=== PATIENT | male | born 1940 | race Caucasian/White ===

== ENCOUNTER 2022-09-16 13:41 | Outpatient (OUT) | payer MEDICARE, SELFPAY ==
[2022-09-16 14:48] LABS: Anion Gap 13.1; BUN Creatinine Ratio 22.2; Calcium 9.1 mg/dL (8.5-10.1); Carbon Dioxide 25.1 mmol/L (21.0-32.0); Chloride 104 mmol/L (98-107); Estimated GFR (African America >60 (>=60); Estimated GFR (Non-African Ame >60 (>=60); Glucose 123 mg/dL (74-106); Potassium 4.2 mmol/L (3.5-5.1); Sodium 138 mmol/L (136-145)
[2022-09-16 14:54] LABS: Basophils Percent Auto 0.3 % (0.2-2.0); Eosinophils Absolute Auto 0.1 10^3/uL (0.0-0.7); Hematocrit 46.3 % (42.0-54.0); Hemoglobin 15.3 g/dL (14.0-18.0); Immature Granulocytes Abs Auto 0.01 10^3/uL (0.00-0.03); Immature Granulocytes Pct Auto 0.2 % (0.0-0.5); Lymphocytes Absolute Auto 1.1 10^3/uL (1.2-3.8); Lymphocytes Percent Auto 16.2 % (20.5-60.0); Mean Corpuscular Hemoglobin 31.9 pg (25.9-34.0); Mean Corpuscular Volume 96.5 fL (80.0-94.0); Mean Platelet Volume 10.7 fL (9.5-13.5); Monocytes Absolute Auto 0.7 10^3/uL (0.3-0.8); Monocytes Percent Auto 11.1 % (1.7-12.0); Neutrophils Absolute Auto 4.6 10^3/uL (1.4-6.5); Neutrophils Percent Auto 70.2 % (43.0-75.0); Platelet Count 172 10^3/uL (150-450); Red Cell Distribution Width 13.2 % (11.0-15.0); White Blood Count 6.6 10^3/uL (4.0-11.0)
== END 2022-09-16 13:42 ==
PROVIDERS: PCP Family Medicine; Visit Provider Internal Medicine Cardiovascular Disease
DX: Z01.812 Encounter for preprocedural laboratory examination (principal); Z01.818 Encounter for other preprocedural examination
CPT/HCPCS: 36415; 80048; 85025

== ENCOUNTER 2023-03-08 09:55 | Outpatient (OUT) | payer MEDICARE, SELFPAY ==
[2023-03-08 10:12] LABS: Basophils Percent Auto 0.3 % (0.2-2.0); Eosinophils Absolute Auto 0.1 10^3/uL (0.0-0.7); Eosinophils Percent Auto 1.9 % (0.9-7.0); Hemoglobin 14.8 g/dL (14.0-18.0); Immature Granulocytes Abs Auto 0.01 10^3/uL (0.00-0.03); Immature Granulocytes Pct Auto 0.1 % (0.0-0.5); Lymphocytes Absolute Auto 1.2 10^3/uL (1.2-3.8); Lymphocytes Percent Auto 17.5 % (20.5-60.0); Mean Corpuscular HGB Conc 32.9 g/dL (29.9-35.2); Mean Corpuscular Hemoglobin 32.2 pg (25.9-34.0); Mean Platelet Volume 10.7 fL (9.5-13.5); Monocytes Absolute Auto 0.6 10^3/uL (0.3-0.8); Neutrophils Percent Auto 71.2 % (43.0-75.0); Platelet Count 160 10^3/uL (150-450); Red Blood Count 4.59 10^6/uL (4.70-6.10); Red Cell Distribution Width 12.6 % (11.0-15.0)
[2023-03-08 10:52] LABS: Anion Gap 12.2; BUN Creatinine Ratio 19.2; Calcium 8.9 mg/dL (8.5-10.1); Carbon Dioxide 28.3 mmol/L (21.0-32.0); Chloride 106 mmol/L (98-107); Estimated GFR (African America >60 (>=60); Estimated GFR (Non-African Ame 58 (>=60); Glucose 175 mg/dL (74-106); Potassium 4.5 mmol/L (3.5-5.1); Sodium 142 mmol/L (136-145)
== END 2023-03-08 09:56 | disposition home or self-care (01) ==
LOC: LAB 09:58
PROVIDERS: PCP Family Medicine; Visit Provider Internal Medicine Cardiovascular Disease
DX: I50.21 Acute systolic (congestive) heart failure (principal)
CPT/HCPCS: 36415; 80048; 85025

== ENCOUNTER 2023-03-22 09:34 | Outpatient (OUT) | payer MEDICARE, SELFPAY ==
--- NOTE | 2023-03-22 09:53 | XR_ITS ---
The [address] [address] Patient Name: LEWIS WAHL MRN: [id number] date: 1940 Sex: M Assigned Patient Location: [facility] Current Patient Location: [facility] Accession/Order Number: [id number] Exam Date: 03/22/2023 10:00 Report Date: 03/22/2023 11:35 At the request of: SOPHIE WALLACE Procedure: XR chest 2V EXAM: XR chest 2V HISTORY: Chronic Systolic Heart Failure I50.22 COMPARISON: None. TECHNIQUE: PA and lateral views of the chest. FINDINGS: The cardiomediastinal silhouette is normal. No focal consolidation is identified. There is no pneumothorax. No pleural effusion is noted. The osseous structures are intact. XR/XR chest 2V IMPRESSION: No acute cardiopulmonary process. Electronically authenticated by: RIOS CABRERA Date: 03/22/2023 11:35
== END 2023-03-22 09:35 | disposition home or self-care (01) ==
LOC: RAD 09:43
PROVIDERS: PCP Family Medicine; Visit Provider Internal Medicine Cardiovascular Disease
DX: I50.22 Chronic systolic (congestive) heart failure (principal)
CPT/HCPCS: 71046

== ENCOUNTER 2023-05-02 12:45 | Outpatient (OUT) | payer MEDICARE, SELFPAY ==
--- OUTSIDE RECORDS SUMMARY | 2023-05-02 12:51 | XMS_ITS | CCD ---
Author Name Unknown Address [address] [place] [address] Organization [facility] Care Team Providers Care Row Boss Hoeing Name Role Phone Denisse Diaz Attending Unavailable Florentino Panda MD Unavailable Unavailable Lydia Milner Unavailable Unavailable Flroentino Panda Unavailable Unavailable ELTAHAWYALE Attending Unavailable ELTAHAWYALE Admitting Unavailable [facility] [place] Referring Unavailable [facility] Primary Care Unavailable ELTAHAWY, DR AGUERO Admitting Unavailable ELTAHAWY, DR AGUERO Attending Unavailable REQUEST, NONE LISTED Primary Care Unavaila ble ELTAHAWY, DR AGUERO Admitting Unavailable ELTAHAWY, DR AGUERO Attending Unavailable ELTAHAWY, DR AGUERO Consulting Unavailable REQUEST, NONE LISTED Primary Care Unavaila ble ELTAHAWY, DR AGUERO Admitting Unavailable ELTAHAWY, DR AGUERO Attending Unavailable REQUEST, NONE LISTED Primary Care Unavaila ble PAY ., DR CHE Admitting Unavailable PAY ., DR CHE Attending Unavailable PAY ., DR CHE Consulting Unavailable REQUEST, NONE LISTED Primary Care Unavaila ble GRAEME BECKHAM Attending Unavailable BHAVANI, GRAEME Consulting Unavailable GRAEME BECKHAM Admitting Unavailable REQUEST, NONE LISTED Primary Care Unavaila ble CELY, DR TEVIN Fuchs Attending Unavailabl e CELY, DR TEVIN Fuchs Consulting Unavailabl e FROYECK, DR TEVIN Fuchs Admitting Unavailabl e REQUEST, NONE LISTED Primary Care Unavaila ble VILLA JASSO Attending Unavailable TYRESE BURDEN Referring Unavailable TYRESE BURDEN Referring Unavailable TYRESE BURDEN Admitting Unavailable TYRESE BURDEN Attending Unavailable ELTAHAWYALE Attending Unavailable YOEL MEDLEY Attending Unavailable TYRESE BURDEN Attending Unavailable Allergies Allergy Classification Reported Allergen(s) Allergy Type Date of Onset Reaction(s) Facility HMG-CoA Reductase Inhibitors (statins) (1 source) atorvastatin Drug Allergy Myalgia [facility] Work Phone: (2 sources) atorvastatin; Translations: [ATORVASTATIN] Drug Allergy 7 [facility] Repository (2 sources) Dextroamphetamine Drug Allergy 6 [facility] Medications Completed/Discontinued Medications Medication Drug Class(es) Dates Sig (Normalized) Sig (Original) aspirin 81 mg oral tablet (1 source) Platelet Aggregation Inhibitor, Nonsteroidal Anti-inflammatory Drug Aspirin Low Dose 81 MG TABS Refills: 0 Active carvedilol 25 mg oral tablet (1 source) alpha-Adrenergic Drew, beta-Adrenergic Drew Carvedilol 25 MG Oral Tablet Refills: 0 Active clopidogrel 75 mg oral tablet (1 source) P2Y12 Platelet Inhibitor Clopidogrel Bisulfate 75 MG Oral Tablet Refills: 0 Active gentamicin 1 mg/ml topical cream (1 source) Start: 09-27-2018 Gentamicin Sulfate 0.1 % External Cream APPLY SPARINGLY TO AFFECTED AREA(S) ONCE DAILY Quantity: 1 Refills: 1 Florentino Panda MD Start : 27-Sep-2018 Active 30 GM Tube 24 hr isosorbide mononitrate 60 mg extended release oral tablet (1 source) Nitrate Vasodilator take 1 tablet by mouth every twenty-four hours Isosorbide Mononitrate ER 60 MG Oral Tablet Extended Release 24 Hour Refills: 0 Active lisinopril 20 mg oral tablet (1 source) Angiotensin Converting Enzyme Inhibitor Lisinopril 20 MG Oral Tablet Refills: 0 Active metFORMIN hydrochloride 500 mg oral tablet (1 source) Biguanide metFORMIN HCl - 500 MG Oral Tablet Refills: 0 Active rosuvastatin calcium 40 mg oral tablet (1 source) HMG-CoA Reductase Inhibitor Rosuvastatin Calcium 40 MG Oral Tablet Refills: 0 Active Problems Active Problems Problem Classification Problem Date Documented Da te Episodic/Chronic Calculus of urinary tract (1 source) History of calculus of kidney; Translations: [Personal history of urinary calculi] Episodic Congestive heart failure; nonhypertensive (4 sources) Chronic systolic (congestive) heart failure; Translations: [Chronic combined systolic (congestive) and diastolic (congestive) heart failure] Onset: 06-13-2022 Chronic Coronary atherosclerosis and other heart disease (1 source) Presence of aortocoronary bypass graft; Translations: [PRESENCE AORTOCORONARY BYPASS GRAFT] Onset: 07-04-2022 Episodic Diabetes mellitus without complication (1 source) Type 2 diabetes mellitus without complications; Translations: [TYPE 2 DM WITHOUT COMPLICATIONS] Onset: 05-30-2022 Chronic Disorders of lipid metabolism (1 source) Hypercholesterolemia ; Translations: [Pure hypercholesterolemia ] Chronic Essential hypertension (1 source) Hypertensive disorder; Translations: [Unspecified essential hypertension] Chronic Open wounds of head; neck; and trunk (1 source) Open wound of nose; Translations: [Open wound of nose, unspecified site, without mention of complication] Episodic Other aftercare (1 source) Other termite treater (current) drug therapy; Translations: [OTH POT ROOM TAPPER CURRENT DRUG THERAPY] Onset: 07-04-2022 Episodic Other aftercare (1 source) jail (current) use of oral hypoglycemic drugs; Translations: [USP USE ORAL HYPOGLYCEMIC DX] Onset: 07-04-2022 Episodic Other aftercare (1 source) jail (current) use of antithrombotics/anti platelets; Translations: [USP ANTITHROMBOT/ANTIPLA TLETS] Onset: 07-04-2022 Episodic Other aftercare (1 source) termite treater (current) use of anticoagulants; Translations: [POT ROOM TAPPER CURRNT USE ANTICOAGULANTS] Onset: 07-04-2022 Episodic Other aftercare (1 source) termite treater (current) use of aspirin; Translations: [USP CURRENT USE OF ASPIRIN] Onset: 05-30-2022 Episodic Other upper respiratory disease (1 source) Lesion of nose; Translations: [Other disease of nasal cavity and sinuses] Episodic Other upper respiratory disease (4 sources) Epistaxis; Translations: [EPISTAXIS] Onset: 06-30-2022 Episodic Katerina-; endo-; and myocarditis; cardiomyopathy (except that caused by tuberculosis or sexually transmitted disease) (6 sources) Dilated cardiomyopathy; Translations: [DILATED CARDIOMYOPATHY] Onset: 09-23-2021 Chronic Rehabilitation care; fitting of prostheses; and adjustment of devices (4 sources) Encounter for fitting and adjustment of other specified devices; Translations: [ENC FITTING AND ADJUST OTH SPEC DEVICES] Onset: 07-05-2022 Chronic Screening and history of mental health and substance abuse codes (1 source) Personal history of nicotine dependence; Translations: [PERSONAL HISTORY OF NICOTINE DEPEND] Onset: 05-30-2022 Episodic Skin and subcutaneous tissue infections (4 sources) Cutaneous abscess of back [any part, except buttock]; Translations: [CUT ABSC BACK ANY PRT EXCPT BUTTOCK] Onset: 05-27-2022 Episodic Unclassified (2 sources) Wound Check; Translations: [Wound Check] Onset: 03-22-2023 Unclassified (2 sources) Longstanding persistent atrial fibrillation; Translations: [Longstanding persistent atrial fibrillation] Onset: 06-13-2022 Past or Other Problems Problem Classification Problem Date Documented Da te Episodic/Chronic NEGATED: Highlighted row has not occurred!Residual codes; unclassified (1 source) Disease Episodic Results Test Name Value Interpretation Reference Range Facility Orders Onlyon 04-27-2023 Orders Only [id number] Raz Wahl A 1940 M Date Provider Department Center 04/27/2023 KASSANDRA TOBIAS [facility] Family History Problem Relation Age of Onset Coronary artery disease Father Family Status - Relation Status Age at Father [facility] Office Visiton 03-22-2023 Follow-up visit [id number] Raz Wahl A 1940 M Date Provider Department Center 03/22/2023 YOEL BOBBY Family History Problem Relation Age of Onset Coronary artery disease Father Family Status - Relation Status Age at Father Level of Service:29379 CT POSTOP FOLLOW UP VISIT RELATED TO ORIGINAL PX Reason for Visit and Comments: Wound Check [025634] [facility] HPon 03-13-2023 [facility] Electrophysiology Consult Note Reason for visit: CMP HPI: Lewis Wahl is a 82 y.o. year old with past medical history of systolic heart failure persistent A-fib, hyperlipidemia, hypertension, CAD status post CABG, DM2 on metformin (no insulin required). Per documentation review it seems he has mixed nonischemic and ischemic cardiomyopathy has had new onset A-fib and then had stress test and an echo. He had positive stress test and echo showed severely reduced LV function; he had heart cath 05/20/2021 which showed severe triple-vessel disease with history of CABG from 1998.. The heart cath showed no suitable targets for revascularization, left internal mammary artery graft to the LAD was widely patent, saphenous vein grafts were known to be occluded with prior angiography. After this heart cath patient was then cardioverted and had TANYA, he converted to sinus rhythm and then 3 months later continued to have reduced ejection fraction. He has been on GDMT: Eliquis 5 mg twice daily, Coreg 25 mg twice daily, Plavix 75 mg daily, Jardiance 10 mg daily, Imdur 60 mg daily, lisinopril 40 mg daily, Crestor 40 mg daily, Aldactone 12.5 mg daily ECG today is A-fib, no previous EKG on last visit to compare. Most recent EKG at my record 05/22/21 was SR with 1st degree. MUGA: 09/01/22 EF 36%. PMHx: CAD s/p CABG 1998, HTN, HLD, atrial fibrillation. PMH: Past Medical History: Diagnosis Date Atrial fibrillation ([facility]) CHF (congestive heart failure) ([facility]) Coronary artery disease Diabetes mellitus ([facility]) Hyperlipidemia Hypertension PSH: Past Surgical History: Procedure Laterality Date CARDIAC CATHETERIZATION CARDIOVERSION CORONARY ARTERY BYPASS GRAFT SH: Social Determinants of Health Tobacco Use: Medium Risk (03/06/2023) Patient History Smoking Tobacco Use: Former Smokeless Tobacco Use: Never Passive Exposure: Not on file Alcohol Use: Not on file Financial Resource Strain: Not on file Food Insecurity: Not on file Transportation Needs: Not on file Physical Activity: Not on file Stress: Not on file Social Connections: Not on file Intimate Partner Violence: Not on file Depression: Not on file Housing Stability: Not on file Allergies: Allergies Allergen Reactions Atorvastatin Weight: @WEIGHT@ Visit Vitals BP (!) 154/97 Pulse 94 Resp 16 Wt 86.2 kg (190 lb) SpO2 97% BMI 29.76 kg/m??? Smoking Status Former BSA 2.02 m??? Meds: No current facility-administered medications on file prior to encounter. Current Outpatient Medications on File Prior to Encounter Medication Sig Dispense Refill apixaban (Eliquis) 5 mg tablet Take 5 mg by mouth every 12 (twelve) hours. carvedilol (Coreg) 25 mg tablet Take 25 mg by mouth every 12 (twelve) hours. cholecalciferol (Vitamin D-3) 25 MCG (1000 UT) capsule Take 25 mcg by mouth in the morning. clopidogrel (Plavix) 75 mg tablet Take 75 mg by mouth in the morning. empagliflozin (Jardiance) 10 mg Take 10 mg by mouth in the morning. isosorbide mononitrate ER (Imdur) 60 mg 24 hr tablet Take 60 mg by mouth in the morning. lisinopril 40 mg tablet Take 40 mg by mouth in the morning. metFORMIN (Glucophage) 1,000 mg tablet Take 1,000 mg by mouth every 12 (twelve) hours. rosuvastatin (Crestor) 40 mg tablet Take 40 mg by mouth in the morning. nitroglycerin (Nitrostat) 0.[address] 0.4 mg under the tongue every 5 (five) minutes if needed for chest pain. ROS: Cardio Basic Cardiovascular Symptoms: no lightheadedness, no leg edema, no syncope, no orthopnea, no PND, no claudication, Constitutional Constitutional: no fever, no night sweats, no significant weight gain, no significant weight loss, no exercise intolerance Eyes Eyes: no dry eyes, no irritation, no vision change ENMT Ears: no difficulty hearing, no ear pain Nose: no frequent nosebleeds, Mouth/Throat: no sore throat, no bleeding gums, no snoring, no dry mouth, no mouth ulcers, no oral abnormalities, no teeth problems Respiratory Respiratory: no cough, no wheezing, no coughing up blood, no sleep apnea Musculoskeletal Musculoskeletal: no muscle aches, no muscle weakness, joint pain+, no back pain, no swelling in the extremities Integumentary Skin no rash, no ulcer, no varicosities, no discoloration, no pruritus Neurologic Neurologic: no loss of consciousness, no weakness, no numbness, no seizures, no dizziness, no headaches Psychiatric Psych: no depression, feeling safe in relationship, no alcohol abuse, Hematologic/Lymphatic Hematologic/Lymphatic no swollen glands, no bruising Physical Exam: Constitutional General Appearance: well-nourished, well-developed, appears stated age Level of Distress: comfortable Psychiatric Mental Status: alert, normal affect Orientation: oriented to time, place, and person Insight: good judgement Eyes Lids and Conjunctivae: non-injected, no xanthelasma ENMT Ears: no le (more content not included)... Normal [facility] Elizabet 03-13-2023 AMY RN educated pt on d/ c instructions. RN encouraged pt to voice any questions or concerns. Pt verbalizes no questions or concerns at this time. Normal [facility] NURSNOTE CHG wipes and betadi ne nasal swabs completed. Normal [facility] Orders Onlyon 03-13-2023 Orders Only [id number] Raz Wahl A 1940 Date Provider Department Center 03/13/2023 SMILEY PAGE [facility] Family History Problem Relation Age of Onset Coronary artery disease Father Family Status - Relation Status Age at Father Normal [facility] Orders Onlyon 11-14-2022 Orders Only [id number] Raz Wahl A 1940 Date Provider Department Center 11/14/2022 [facility] Family History Problem Relation Age of Onset Coronary artery disease Father Family Status - Relation Status Age at Father Normal [facility] Documentationon 09-23-2022 Documentation [id number] Raz Wahl A 1940 Date Provider Department Center 09/23/2022 VILLA HUNT ENRIQUE [facility] Family History Problem Relation Age of Onset Coronary artery disease Father Family Status - Relation Status Age at Father Normal [facility] Office Visiton 09-13-2022 Follow-up visit [id number] Raz Wahl A 1940 Date Provider Department Center 09/13/2022 TYRESE CHRISTY ENRIQUE Saenz Family History Problem Relation Age of Onset Coronary artery disease Father Family Status - Relation Status Age at Father Level of Service:48143 CT OFFICE/OUTPATIENT NEW HIGH MDM 60-74 MINUTES Normal [facility] Office Visiton 08-25-2022 Follow-up visit [id number] Raz Wahl A 1940 Date Provider Department Center 08/25/2022 VILLA HUNT ENRIQUE [facility] Family History Problem Relation Age of Onset Coronary artery disease Father Family Status - Relation Status Age at Father Level of Service:31534 CT OFFICE/OUTPATIENT ESTABLISHED MOD MDM 30-39 MIN Reason for Visit and Comments: Follow-up [491201] - f/u muga scan Normal [facility] Orders Onlyon 08-25-2022 Orders Only [id number] WahlRaz jay A 1940 M Date Provider Department Center 08/25/2022 KAREN LARSON [facility] Family History Problem Relation Age of Onset Coronary artery disease Father Family Status - Relation Status Age at Father Normal [facility] CBC AUTO DIFFon 06-30-2022 BASO # 0.0 103/ul Normal 0.0-0.1 [facility] Comment on above: Performed By: #### C BC #### [facility] [address] [address] [address] Marilyn Wahl Basophils/100 WBC (Bld) 0.2 % Normal 0.2-2.0 [facility] Comment on above: Performed By: #### C BC #### [facility] [address] [place] [address] Dr. Marilyn Wahl EO # 0.1 103/ul Normal 0.0-0.7 [facility] Comment on above: Performed By: #### C BC #### [facility] [address] [address] [address] Marilyn Wahl Eosinophils/100 WBC (Bld) 2.0 % Normal 0.9-7.0 [facility] Comment on above: Performed By: #### C BC #### [facility] [address] [place] [address] Dr. Marilyn Wahl Erythrocyte distribution width (RBC) [Ratio] 13.3 % Normal 11.0-15.0 [facility] Comment on above: Performed By: #### C BC #### [facility] [address] [place] [address] Dr. Marilyn Wahl Hematocrit (Bld) [Volume fraction] 42.9 % Normal 42.0-54.0 [facility] Comment on above: Performed By: #### C BC #### [facility] [address] [place] [address] Dr. Marilyn Wahl Hemoglobin (Bld) [Mass/Vol] 14.6 g/dL Normal 14.0-18.0 [facility] Comment on above: Performed By: #### C BC #### [facility] [address] [place] [address] Dr. Marilyn Wahl IG # 0.01 10e3/ul Normal 0.00-0.03 [facility] Comment on above: Performed By: #### C BC #### [facility] [address] [place] [address] Dr. Marilyn Wahl IG % 0.2 % Normal 0.0-0.5 [facility] Comment on above: Performed By: #### C BC #### [facility] [address] [place] [address] Dr. Marilyn Wahl LYMPH # 1.0 103/ul Critically low 1.2-3.8 [facility] Comment on above: Performed By: #### C BC #### [facility] [address] [place] [address] Dr. Marilyn Wahl Lymphocytes/100 WBC (Bld) 15.2 % Critically low 20.5-60.0 [facility] Comment on above: Performed By: #### C BC #### [facility] [address] [place] [address] Dr. Marilyn Wahl MANUAL DIFF REQ NO Normal [facility] Comment on above: Performed By: #### C BC #### [facility] [address] [place] [address] Dr. Marilyn Wahl MCH (RBC) [Entitic mass] 32.1 pg Normal 25.9-34.0 [facility] Comment on above: Performed By: #### C BC #### [facility] [address] [place] [address] Dr. Marilyn Wahl MCHC (RBC) [Mass/Vol] 34.0 g/dL Normal 29.9-35.2 [facility] Comment on above: Performed By: #### C BC #### [facility] [address] [place] [address] Dr. Marilyn Wahl MCV (RBC) [Entitic vol] 94.3 fL Critically high 80.0-94.0 [facility] Comment on above: Performed By: #### C BC #### [facility] [address] [place] [address] Dr. Marilyn Wahl MONO # 0.6 103/ul Normal 0.3-0.8 [facility] Comment on above: Performed By: #### C BC #### [facility] [address] [address] [address] Marilyn Wahl Monocytes/100 WBC (Bld) 9.9 % Normal 1.7-12.0 [facility] Comment on above: Performed By: #### C BC #### [facility] [address] [place] [address] Dr. Marilyn Wahl NEUT # 4.7 103/ul Normal 1.4-6.5 [facility] Comment on above: Performed By: #### C BC #### [facility] [address] [place] [address] Dr. Marilyn Wahl Neutrophils/100 WBC (Bld) 72.5 % Normal 43.0-75.0 [facility] Comment on above: Performed By: #### C BC #### [facility] [address] [place] [address] Dr. Marilyn Wahl Platelet mean volume (Bld) [Entitic vol] 10.0 fL Normal 9.5-13.5 [facility] Comment on above: Performed By: #### C BC #### [facility] [address] [place] [address] Dr. Marilyn Wahl PLT 178 103/ul Normal 150-450 [facility] Comment on above: Performed By: #### C BC #### [facility] [address] [place] [address] Dr. Marilyn Wahl RBC 4.55 106/ul Critically low 4.70-6.10 [facility] Comment on above: Performed By: #### C BC #### [facility] [address] [place] [address] Dr. Marilyn Wahl WBC 6.4 103/ul Normal 4.0-11.0 [facility] Comment on above: Performed By: #### C BC #### [facility] [address] [place] [address] Dr. Marilyn Wahl PROF CHEM 8 (BAS METB)on Anion gap [Moles/Vol] 11.3 mmol/L Normal [facility] Comment on above: Performed By: #### B MP #### [facility] [address] [address] [address] Marilyn Wahl Calcium [Mass/Vol] 8.7 mg/dL Normal 8.5-10.1 [facility] Comment on above: Performed By: #### B MP #### [facility] [address] [address] [address] Marilyn Wahl Chloride [Moles/Vol] 106 mmol/L Normal 98-107 [facility] Comment on above: Performed By: #### B MP #### [facility] [address] [place] [address] Dr. Marilyn Wahl CO2 [Moles/Vol] 26.1 mmol/L Normal 21.0-32.0 [facility] Comment on above: Performed By: #### B MP #### [facility] [address] [place] [address] Dr. Marilyn Wahl Creatinine [Mass/Vol] 1.02 mg/dL Normal 0.70-1.30 [facility] Comment on above: Performed By: #### B MP #### [facility] [address] [place] [address] Dr. Marilyn Wahl EGFR-AF CENTRAL AFRICAN >60 Normal >=60 [facility] Comment on above: Performed By: #### B MP #### [facility] [address] [address] [address] Marilyn Wahl EGFR-NON AF CENTRAL AFRICAN >60 Normal >=60 [facility] Comment on above: Performed By: #### B MP #### [facility] [address] [place] [address] Dr. Marilyn Wahl Glucose [Mass/Vol] 156 mg/dL Critically high 74-106 [facility] Comment on above: Performed By: #### B MP #### [facility] [address] [address] [address] Marilyn Wahl Potassium [Moles/Vol] 4.4 mmol/L Normal 3.5-5.1 [facility] Comment on above: Performed By: #### B MP #### [facility] [address] [address] [address] Marilyn Wahl Sodium [Moles/Vol] 139 mmol/L Normal 136-145 [facility] Comment on above: Performed By: #### B MP #### [facility] [address] [address] [address] Marilyn Wahl Urea nitrogen [Mass/Vol] 21.0 mg/dL Critically high 7.0-18.0 [facility] Comment on above: Performed By: #### B MP #### [facility] [address] [place] [address] Dr. Marilyn Wahl Urea nitrogen/Creatinine [Mass ratio] 20.6 mg/mg Normal [facility] Comment on above: Performed By: #### B MP #### [facility] [address] [place] [address] Dr. Marilyn Wahl Office Visiton 06-13-2022 Follow-up visit [id number] Raz Wahl 1940 M Date Provider Department Center 06/13/2022 [place] SANTOS [facility] Family History Problem Relation Age of Onset Coronary artery disease Father Family Status - Relation Status Age at Father Level of Service:98598 CT OFFICE/OUTPATIENT ESTABLISHED MOD MDM 30-39 MIN Reason for Visit and Comments: Coronary Artery Disease [187] Congestive Heart Failure [127] Hyperlipidemia [182] Atrial Fibrillation [80] Hypertension [254047] Normal [facility] CULTURE ABSCESSon 05-27-2022 CULTURE ABSCESS Culture Observations : ANAEROBE PRESENT. Isolate 1 Finegoldia magna Moderate growth of Normal [facility] Comment on above: Performed By: #### A BCESCX #### [facility] [address] [place] [address] Dr. Marilyn Wahl ECHOCARDIO M/2D COMPLETEon 0 09-23-2021 ECHOCARDIO M/2D COMPLETE Patient: LEWIS WAHL. Exam Date: 09/23/2021 : 1940 Gender:M Ordering : DR ALE SANTOS M.D. Admission #: [id number] Family : JOSEP MILNER . Order #: [id number] CLICK HERE TO VIEW EXAM ECHOCARDIOGRAM REPORT PROCEDURE: CARDIO PULMONARY ECHOCARDIO M/2D COMP INDICATIONS: Heart failure with reduced EF due to cardiomyopathy, atrial fibrillation, CABG, PTCA COMPARISON: None. DESCRIPTION: COMPLETE ECHOCARDIOGRAM Real-time transthoracic echocardiography with 2D, M-mode, spectral and color flow Doppler performed. QUALITY: Technical quality was good. LEFT VENTRICLE: Mild dilatation. Mild eccentric left ventricular hypertrophy. Global hypokinesis. Moderately to severely reduced left ventricular systolic function. LV EF: Moderately to severely reduced left ventricular ejection fraction, (25-30%). DIASTOLIC: Not adequately assessed due to heart rhythm. ATRIAL SEPTUM: LEFT ATRIUM: Moderate dilatation. RIGHT ATRIUM: Mild dilatation. RIGHT VENTRICLE: Normal chamber size. Decreased right ventricular systolic function. TRICUSPID VALVE: Normal mobility and thickness. No stenosis with trivial regurgitation. MITRAL VALVE: Mildly thickened with normal mobility. No evidence of mitral valve stenosis. Mild mitral regurgitation. AORTIC VALVE: Normal trileaflet appearance. Mildly calcified aortic valve. Normal leaflet mobility. No evidence of aortic valve stenosis. No aortic regurgitation. AORTIC ROOT: Normal diameter and appearance. Ascending aorta is normal in size. PULMONIC VALVE: Normal thickness and mobility. No stenosis. Mild regurgitation. PERICARDIUM: No evidence of pericardial effusion. IVC: Collapses with inspirations. PLEURA: CONCLUSION: 1. The left ventricle is mildly dilated with mild eccentric hypertrophy. There is global hypokinesis. Moderately severely reduced left ventricular systolic function. LVEF is 25 to 30%. 2. Normal right ventricular systolic function. 3. No significant valvular dysfunction. 4. Unable to assess right-sided pressures due to lack of measurable tricuspid regurgitation. Adult Echocardiography Procedure Report Left Ventricle LVEDD (3.7 - 5.6 cm): 5.96 cm LVESD (2.2 - 4.0 cm): 5.30 cm LVIVS thickness (0.6 - 1.2 cm): 1.30 cm LVPW thickness (0.5 - 1.0 cm): 1.15 cm LVOT Area (cm2): 5.31 cm2 LVOT Diameter 2.60 cm Left Ventricular Ejection Fraction: 25-30 % Left Atrium LA Volume Index (2D A2C): 47.10 ml/m2 Left Atrium Systolic Dimension: 5.00 cm Left Atrium Systolic Area(A2C): 27.10 cm2 Left Atrium Systolic Volume(A2C): 82359 mm3 Mitral Valve Mitral Valve E-Wave Peak Velocity: 92.30 cm/s Mitral Valve E-Wave Peak Velocity: 106.00 cm/s Right Ventricle Aorta AO Root Diam: 3.70 cm Aortic Valve AoV Area (Peak Lee): 2.76 cm2 Peak Velocity(Antegrade Flow): 149.00 cm/s Peak Gradient(Antegrade Flow): 9 mm[Hg] Tricuspid Valve Pulmonic Valve Peak Velocity: 97.80 cm/s Peak Gradient: 4 mm[Hg] Right Atrium Dictated by: Nickolas Rizzo M.D. on 2021 at 19:10 Approved by: Nickolas Rizzo M.D. on 2021 at 19:13 Normal [facility] Cardiovascular Lab Reporton 05-20-2021 Cardiovascular Lab Report [facility] Patient Name: [facility] MR #: [id number] Physician: Alistair Flaherty MD Medicine Service Date: 05/20/2021 Division of Birthdate: 1940 Cardiology Room #: [facility] Cardiovascular Services [place] [address] Cardiovascular Laboratory Report PROCEDURE PERFORMED: Transesophageal echocardiogram. INDICATION: Atrial fibrillation with RVR. FELLOW DOCTOR: Nikki Gagnon MD. PROCEDURE IN DETAIL: An informed consent was obtained from the patient after explaining indication, risks, and benefits, and alternatives. The patient understood and signed and agreed the consent form. The patient was brought to the minilab operator and TANYA, transesophageal echocardiogram, was performed under conscious sedation. The patient obtained a total of 3 mg of Versed and 75 mcg of fentanyl during the procedure. The transesophageal echocardiogram did not show any thrombus in the left atrial appendage. Full TANYA reported elsewhere. After the transesophageal echocardiogram, synchronized biphasic cardioversion was done with 200 joules of energy. The patient successfully converted to sinus rhythm as evidenced by EKG done postprocedure. No complications throughout the procedure. Electronically Signed by: Alistair Del Cid MD 06/10/2021 07:03 P Alistair Del Cid MD I was present for the entire procedure. Date Dict: 05/20/2021/01:26 P/Nikki Gagnon MD Date Trans: 05/20/2021 01:45 P/mmo [id number] Normal [facility] Cardiovascular Lab Report [facility] Patient Name: Pankaj [facility] [place] MR #: [id number] Department of Physician: Scott Guevara M.D. Division of Service Date: 05/20/2021 Cardiology Birthdate: 1940 Adult Cardiovascular Room #: [address] [place] [address] Cardiovascular Laboratory Report FINAL IMPRESSIONS: 1. Severe 3-vessel coronary artery disease including the left main coronary artery; no suitable targets for percutaneous revascularization 2. Left internal mammary artery graft to the left anterior descending is widely patent. 3. Saphenous vein grafts are known to be occluded by prior angiography. 4. Severe systemic hypertension. 5. Moderate to severely reduced global left ventricular systolic function by noninvasive imaging. RECOMMENDATIONS: 1. Aggressive cardiovascular risk factor modification. 2. Will proceed with transesophageal echocardiography +/- elective electrical cardioversion in an attempt to restore sinus rhythm given new onset heart failure with reduced ejection fraction (HFrEF). 3. Optimization of medical management; aspirin, high-intensity statin therapy, beta-drew, and either an angiotensin-converting enzyme inhibitor/receptor drew versus Entresto is indicated. 4. The patient is to resume Eliquis. 5. Follow up with his family physician as scheduled. 6. Follow up with [facility] Cardiology as scheduled. PROCEDURES: Bilateral selective coronary angiography and angiography of the left internal mammary artery graft via left radial approach. METHODS: After risks, benefits, and alternatives were explained, written informed consent was obtained. The patient was prepped and draped in usual sterile fashion over the left wrist. Using 1% lidocaine solution, local infiltration anesthesia was achieved. Using a modified Seldinger technique and a micropuncture kit, access of the left radial artery was obtained. A 6-Finnish glide sheath was inserted without difficulty. Bilateral selective coronary angiography was performed using JR4 and JL4 catheters. An IM catheter was used to cannulate and image the left internal mammary artery graft. The left subclavian was imaged by injection via the JR catheter. After reviewing the images and data, it was elected to conclude the procedure. All catheters were removed. The radial sheath was removed with application of a quick clot radial pad to achieve hemostasis. Overall, the patient tolerated the procedure well. There were no overt complications. He was to be transferred to the holding area in stable condition. FINDINGS: Hemodynamics AO 154/111. Left ventriculography: This was not performed. Ejection fraction is 25% to 30% by noninvasive imaging. CORONARY ARTERIES: Left main coronary artery: This arises from the left coronary cusp. It trifurcates into the left anterior descending, ramus intermedius, and left circumflex coronary artery. It shows a 50% distal stenosis and significant ectasia. Left anterior descending coronary artery. This shows ectasia in the proximal portion with an ostial 70% stenosis and a mid vessel 60% stenosis. It gives rise to prominent septal perforators supplying [id number] collaterals. Distal filling is seen via a patent left internal mammary artery graft to the left anterior descending. The diagonal branch showed diffuse disease. Ramus intermedius: This is a small to moderate size vessel with a 70% ostial stenosis. Left circumflex coronary artery: This shows ectasia and significant tortuosity in the proximal portion followed by a 60% stenosis. There is evidence of [id number]-[id number] collaterals. Right coronary artery: This is a dominant vessel giving rise to the posterior descending and posterolateral branches visualized via contralateral collaterals. It is stump occluded just past the ostium. There is heavy calcification throughout the vessel. GRAFT ANGIOGRAPHY: Left internal mammary artery graft to the left anterior descending: This is widely patent. Saphenous vein graft: These are known to be occluded. Left subclavian artery: This shows tortuosity without significant stenosis. INDICATIONS: New onset heart failure with reduced ejection fraction (HFrEF). Electronically Signed by: Ale Santos M.D. 05/26/2021 08:56 A Ale Santos M.D. Date Dict: 05/20/2021/11:19 Morgan/Ale Santos M.D. Date Trans: 05/20/2021 11:54 A/misael [id number] cc: KENYA Schmido Cln [address] [place] [address] Normal [facility] APTTon 09-27-2018 aPTT Coag time (Bld) 36 s Normal 28 - 38 [facility] Comment on above: Result Comment: THE APTT IS NO LONGER USED FOR MONITORING UNFRACTIONATED HEPARIN THERAPY. FOR MONITORING HEPARIN THERAPY, USE THE HEPARIN ASSAY. Performed By: #### A PTT #### [address] [address] CBC AND DIFFERENTIALon 09-27 % AUTOMATED IMMATURE GRAN 0.1 % Normal 0.0 - 0.9 [facility] Comment on above: Result Comment: Perc ent differential counts (%) should be interpreted in the context of the absolute cell counts (cells/L). Performed By: #### C BCDF #### [address] [address] % NEUTROPHIL 67.7 % Normal 40.0 - 80.0 [facility] Comment on above: Performed By: #### C BCDF #### [address] [address] Basophils/100 WBC (Bld) 0.1 % Normal 0.0 - 2.0 [facility] Comment on above: Performed By: #### C BCDF #### [address] [address] Basophils/100 WBC (Bld) 0.01 x10E9/L Normal 0.00 - 0.10 [facility] Comment on above: Performed By: #### C BCDF #### [address] [address] Eosinophils #/vol (Bld) 0.25 10*3/uL Normal 0.00 - 0.40 [facility] Comment on above: Performed By: #### C BCDF #### [address] [address] Eosinophils/100 WBC (Bld) 3.4 % Normal 0.0 - 6.0 [facility] Comment on above: Performed By: #### C BCDF #### [address] [address] Erythrocyte distribution width Ratio (RBC) 12.7 % Normal 11.5 - 14.5 [facility] Comment on above: Performed By: #### C BCDF #### [address] [address] Hematocrit Volume Fraction (Bld) 43.2 % Normal 41.0 - 52.0 [facility] Comment on above: Performed By: #### C BCDF #### [address] [address] Hemoglobin mass conc (Bld) 14.3 g/dL Normal 13.5 - 17.5 [facility] Comment on above: Performed By: #### C BCDF #### [address] [address] Lymphocytes #/vol (Bld) 1.29 10*3/uL Normal 0.80 - 3.00 [facility] Comment on above: Performed By: #### C BCDF #### [address] [address] Lymphocytes/100 WBC (Bld) 17.5 % Normal 13.0 - 44.0 [facility] Comment on above: Performed By: #### C BCDF #### [address] [address] MCHC mass conc (RBC) 33.1 g/dL Normal 32.0 - 36.0 [facility] Comment on above: Performed By: #### C BCDF #### [address] [address] MCV Entitic volume (RBC) 93 fL Normal 80 - 100 [facility] Comment on above: Performed By: #### C BCDF #### [address] [address] Monocytes #/vol (Bld) 0.83 10*3/uL High 0.05 - 0.80 [facility] Comment on above: Performed By: #### C BCDF #### [address] [address] Monocytes/100 WBC (Bld) 11.2 % Normal 2.0 - 10.0 [facility] Comment on above: Performed By: #### C BCDF #### [address] [address] Neutrophils #/vol (Bld) 5.00 10*3/uL Normal 1.60 - 5.50 [facility] Comment on above: Performed By: #### C BCDF #### [address] [address] Platelets #/vol (Bld) 193 10*3/uL Normal 150 - 450 [facility] Comment on above: Performed By: #### C BCDF #### [address] [address] RBC #/vol (Bld) 4.64 x10E12/L Normal 4.50 - 5.90 [facility] Comment on above: Performed By: #### C BCDF #### [address] [address] WBC #/vol (Bld) 7.4 10*3/uL Normal 4.4 - 11.3 [facility] [place] Comment on above: Performed By: #### C BCDF #### [address] [address] COMPREHENSIVE PANELon 2018 Albumin mass conc 3.8 g/dL Normal 3.4 - 5.0 [facility] Comment on above: Performed By: #### C MP #### [address] [address] ALP enzyme act/vol 97 U/L Normal 33 - 136 [facility] Comment on above: Performed By: #### C MP #### [address] [address] ALT enzyme act/vol 19 U/L Normal 10 - 52 [facility] Comment on above: Result Comment: Princess ents treated with Sulfasalazine may generate falsely decreased results for ALT. Performed By: #### C MP #### [address] [address] Anion gap molar conc 10 mmol/L Normal 10 - 20 [facility] Comment on above: Performed By: #### C MP #### [address] [address] AST enzyme act/vol 17 U/L Normal 9 - 39 [facility] Comment on above: Performed By: #### C MP #### [address] [address] Bilirubin mass conc 0.7 mg/dL Normal 0.0 - 1.2 [facility] Comment on above: Performed By: #### C MP #### [address] [address] Calcium mass conc 9.1 mg/dL Normal 8.6 - 10.3 [facility] Comment on above: Performed By: #### C MP #### [address] [address] Chloride molar conc 106 mmol/L Normal 98 - 107 [facility] Comment on above: Performed By: #### C MP #### [address] [address] Creatinine mass conc 0.96 mg/dL Normal 0.50 - 1.30 [facility] Comment on above: Performed By: #### C MP #### [address] [address] GFR- AM. >60 Normal >60 [facility] Comment on above: Result Comment: CALC ULATIONS OF ESTIMATED GFR ARE PERFORMED USING THE MDRD STUDY EQUATION FOR THE IDMS-TRACEABLE CREATININE METHODS. CLIN CHEM 2007;53:766-72 Performed By: #### C MP #### [address] [address] GFR-NON AM. >60 Normal >60 [facility] Comment on above: Performed By: #### C MP #### [address] [address] Glucose mass conc 171 mg/dL High 74 - 99 [facility] Comment on above: Performed By: #### C MP #### [address] [address] HCO3 molar conc (Bld) 28 mmol/L Normal 21 - 32 [facility] Comment on above: Performed By: #### C MP #### [address] [address] Potassium molar conc 3.8 mmol/L Normal 3.5 - 5.3 [facility] Comment on above: Performed By: #### C MP #### [address] [address] Protein mass conc 6.4 g/dL Normal 6.4 - 8.2 [facility] Comment on above: Performed By: #### C MP #### [address] [address] Sodium molar conc 140 mmol/L Normal 136 - 145 [facility] Comment on above: Performed By: #### C MP #### [address] [address] Urea nitrogen mass conc 13 mg/dL Normal 6 - 23 [facility] Comment on above: Performed By: #### C MP #### [address] [address] PT/INRon 09-27-2018 INR Coag RelTime (PPP) 1.0 {INR} Normal 0.9 - 1.1 [facility] Comment on above: Performed By: #### P TINR #### [address] [address] Prothrombin time (PT) Coag time (PPP) 11.8 s Normal 9.7 - 12.7 [facility] Comment on above: Performed By: #### P TINR #### [address] [address] Urine Cultureon 05-08-2018 Bacteria identified Cx Nom (U) [facility] ORGANISM: Escherichia coli (O:ESCCOL) Hurst Count >100,000 Aerobic KAMALJIT Charge (Neg) --- SUSCEPTIBILITY -- ORGANISM: O:ESCCOL ANTIBIOTIC INTERPRETATION KAMALJIT Amikacin S <16 Amoxacillin/K Clavulanate S <8/4 Ampicillin S <8 Ampicillin/Sulbactam S <8/4 Aztreonam S <8 Cefazolin S <8 Cefepime S <8 Cefotetan S <16 Ceftazidime S <1 Ceftriaxone S <8 Cefuroxime S <4 Ciprofloxacin S <1 Ertapenem S <2 Gentamicin S <4 Levofloxacin S <2 Meropenem S <4 Nitrofurantoin S <32 Piperacillin/Tazobacta m S <16 Tetracycline S <4 Tobramycin S <4 Trimethoprim/Sulfameth oxazole S <2/38 S = SUSCEPTIBLE I = INTERMEDIATE R = RESISTANT BLANK = DATA NOT AVAILABLE, OR DRUG NOT ADVISABLE OR TESTED R* = RESISTANCE DUE TO EXTENDED SPECTRUM BETA-LACTAMASES ESBL = EXTENDED SPECTRUM BETA-LACTAMASE TFG = THYMIDINE-DEPENDENT STRAIN AGUSTIN = BETA-LACTAMASE POSITIVE IB = INDUCIBLE BETA-LACTAMASE. APPEARS IN PLACE OF 'S' WITH SPECIES KNOWN TO POSSESS INDUCIBLE BETA-LACTAMASES. POTENTIALLY THEY MAY BECOME RESISTANT TO ALL B-LACTAM DRUGS. PERFORMED BY: [place] [address] PATHOLOGIST ASSOCIATE PROFESSOR OF RADIOLOGY CHRIST CANDELARIA M.D. Normal [facility] Comment on above: Performed By: #### C UU #### [address] Encounters Encounter Date Encounter Type Care Provider Facility Start: 03-22-2023 End: [facility] 03-13-2023 ambulatory [facility] Start: 03-13-2023 End: 03-13-2023 ambulatory TYRESE [facility] Start: 09-13-2022 End: 09-13-2022 ambulatory [facility] Start: 08-25-2022 End: 08-25-2022 ambulatory VILLA URENAMIReji [facility] Start: 07-05-2022 End: 07-05-[address] TEVIN TA Facility:[facility] Start: 06-30-2022 End: 06-30-2022 ambulatory GRAEME EBCKHAM Facility:[facility] Start: 06-13-2022 End: 06-13-2022 [facility] Start: 05-27-2022 End: 05-27-[address] CHINEDU AGUILAR . Facility:[facility] Start: 02-03-[address] ALE Hirsch ty:[facility] Start: 10-12-[address] ALE Hirsch ty:[facility] Start: 09-23-2021 End: [address] ALE SANTOS Facility:[facility] Start: 05-20-2021 End: 05-21-2021 ambulatory ALE SANTOS Facility:[facility] Start: 05-08-2018 End: 05-08-2018 Patient encounter procedure Denisse Diaz Facility:[facility] Patient encounter status Florentino Panda MD [facility] Work Phone: Procedures Date Procedure Procedure Detail Performing Clinician Start: 09-27-2018 Follow-up visit Bypass graft Florentino Panda MD Cataract surgery Florentino oliveira MD Mohs surgery Florentino Panda MD Tooth extraction Florentino oliveira MD Payers Date Payer Category Payer Medicare [id number] 2009 Unknown [id number] 1959 Self-pay 1959 Unknown [id number] 1940 Unknown [id number] [id number] 1940 Unknown [id number] 2.16.84 [id number] 1940 Unknown [id number] 2.16.84 [id number] 1940 Unknown [id number] 2.16.84 [id number] 1940 Unknown [id number] 2.16.84 [id number] 1940 Unknown [id number] 2.16.84 [id number] 1940 Unknown [id number] 2.16.84 [id number] Unknown [id number] [id number] Social History Date Type Detail Facility NEGATED: Highlighted row - - [facility] Work Phone: Functional Status Date Assessment Result Facility NEGATED: Highlighted row Functional performance Functional status health issues are not documented Disease [facility] Work Phone: Mental Status Date Assessment Result Facility NEGATED: Highlighted row Cognitive function [Interpretation] Cognitive status health issues are not documented Disease [facility] Work Phone: Clinical Notes 06-13-2022 to 03-22-2023 Note Date & Type Note Facility 03-22-2023 Note Cardiovascular Medic [facility] SUBJECTIVE Chief Complaint Patient presents with Wound Check Lewis Wahl is a 82 y.o. male here for follow-up after his recent dual chamber ICD placement. HPI He has been feeling well since his procedure. He has had trouble sleeping the past couple of nights. Denies c/o fever/chills, CP, dyspnea, orthopnea, PND, LE edema, dizziness/LH, palpitations, syncope. He was started on amiodarone with plans for a cardioversion in 4 weeks. Patient Active Problem List Diagnosis Acute systolic heart failure (CMS/HCC) Coronary atherosclerosis Hyperlipidemia Hypertensive disorder Persistent atrial fibrillation (CMS/HCC) Chronic systolic heart failure (CMS/HCC) Longstanding persistent atrial fibrillation (CMS/HCC) Past Medical History: Diagnosis Date Atrial fibrillation (CMS/HCC) CHF (congestive heart failure) ([facility]) Coronary artery disease Diabetes mellitus ([facility]) Hyperlipidemia Hypertension Family History Problem Relation Name Age of Onset Coronary artery disease Father Social History Tobacco Use Smoking status: Former Types: Cigarettes Smokeless tobacco: Never Substance Use Topics Alcohol use: Yes Comment: moderate Allergies Allergen Reactions Atorvastatin ROS OBJECTIVE Visit Vitals Smoking Status Former Medications: Current Outpatient Medications: amiodarone (Pacerone) 200 mg tablet, Take 2 tablets (400 mg) by mouth in the morning and at bedtime for 14 days, THEN 1 tablet (200 mg) in the morning., Disp: 116 tablet, Rfl: 0 apixaban (Eliquis) 5 mg tablet, Take 5 mg by mouth every 12 (twelve) hours., Disp: , Rfl: carvedilol (Coreg) 25 mg tablet, Take 25 mg by mouth every 12 (twelve) hours., Disp: , Rfl: cholecalciferol (Vitamin D-3) 25 MCG (1000 UT) capsule, Take 25 mcg by mouth in the morning., Disp: , Rfl: clopidogrel (Plavix) 75 mg tablet, Take 75 mg by mouth in the morning., Disp: , Rfl: doxycycline (Vibramycin) 100 mg capsule, Take 1 capsule (100 mg) by mouth in the morning and at bedtime for 14 days. Take with at least 8 ounces (large glass) of water, do not lie down for 30 minutes after, Disp: 28 capsule, Rfl: 0 empagliflozin (Jardiance) 10 mg, Take 10 mg by mouth in the morning., Disp: , Rfl: isosorbide mononitrate ER (Imdur) 60 mg 24 hr tablet, Take 60 mg by mouth in the morning., Disp: , Rfl: lisinopril 40 mg tablet, Take 40 mg by mouth in the morning., Disp: , Rfl: metFORMIN (Glucophage) 1,000 mg tablet, Take 1,000 mg by mouth every 12 (twelve) hours., Disp: , Rfl: nitroglycerin (Nitrostat) 0.4 mg SL tablet, Place 0.4 mg under the tongue every 5 (five) minutes if needed for chest pain., Disp: , Rfl: rosuvastatin (Crestor) 40 mg tablet, Take 40 mg by mouth in the morning., Disp: , Rfl: spironolactone (Aldactone) 25 mg tablet, Take 0.5 tablets (12.5 mg) by mouth in the morning., Disp: 45 tablet, Rfl: 3 Physical Exam Constitutional: Appearance: Normal appearance. He is normal weight. HENT: Head: Normocephalic and atraumatic. Right Ear: External ear normal. Left Ear: External ear normal. Eyes: Extraocular Movements: Extraocular movements intact. Pupils: Pupils are equal, round, and reactive to light. Neck: Vascular: No carotid bruit. Cardiovascular: Rate and Rhythm: Normal rate and regular rhythm. Pulses: Normal pulses. Heart sounds: Normal heart sounds. Comments: Left upper chest dual chamber ICD incision healing welll, no erythema, no calor, no drainage, no hematoma. Small to moderate amount of ecchymosis that is resolving. Pulmonary: Effort: Pulmonary effort is normal. Breath sounds: Normal breath sounds. Abdominal: General: Bowel sounds are normal. Palpations: Abdomen is soft. Musculoskeletal: General: Normal range of motion. Cervical back: Neck supple. Right lower leg: No edema. Left lower leg: No edema. Skin: General: Skin is warm and dry. Neurological: General: No focal deficit present. Mental Status: He is alert and oriented to person, place, and time. Psychiatric: Mood and Affect: Mood normal. Behavior: Behavior normal. Thought Content: Thought content normal. Judgment: Judgment normal. Labs: Admission on 03/13/2023, Discharged on 03/13/2023 Component Date Value Ref Range Status WBC 09/16/2022 6.6 Final RBC (0/HPF) 09/16/2022 4.8 Final Hemoglobin 09/16/2022 15.3 Final Hematocrit (client supplied) 09/16/2022 46.3 Final Platelets 09/16/2022 172 Final Sodium 09/16/2022 138 Final Potassium 09/16/2022 4.2 Final Chloride 09/16/2022 104 Final Glucose 09/16/2022 123 mg/dL Final BUN, Bld 09/16/2022 22 Final Creatinine 09/16/2022 0.99 Final Calcium 09/16/2022 9.1 Final WBC 03/08/2023 7 Final Hemoglobin, Serum 03/08/2023 14.8 Final Hematocrit 03/08/2023 45.0 39.0 - 55.0 % Final Platelets 03/08/2023 160 Final Sodium 03/08/2023 142 Final Potassium, Bld 03/08/2023 4.5 Final Chloride 03/08/2023 106 (more content not included)... [facility] 03-13-2023 Note DUAL CHAMBER ICD IMP LANT PROCEDURE NOTE DATE OF PROCEDURE: 03/13/2023 PERFORMING PHYSICIAN: Dr. Tyrese Burden CONSENT: Patient LOCATION: EP Lab PROCEDURE PERFORMED: 1. Implantation of dual chmaber ICD ([employer]) 2. Ultrasound guided venous access INDICATIONS: 1. Dilated ischemic cardiomyopathy 2. NYHA class III 3. Atrial fibrillation PROCEDURAL SEDATION: Versed and Fentanyl. Moderate sedation was administered by the sedation nurse under my supervision and noted in the CVL log. Intraprocedural face to face sedation time: 60min. Monitoring: Cardiac telemetry, Blood pressure, continuous pulse oxymetry. FLUOROSCOPY TIME: 2.1min/ 10mGray. EBL: 25cc SPECIMEN REMOVED: None PREPARATION: 82year old with past medical history of systolic heart failure persistent A-fib, hyperlipidemia, hypertension, CAD status post CABG, DM2 on metformin (no insulin required). Per documentation review it seems he has mixed nonischemic and ischemic cardiomyopathy has had new onset A-fib and then had stress test and an echo. He had positive stress test and echo showed severely reduced LV function; he had heart cath 05/20/2021 which showed severe triple-vessel disease with history of CABG from 1998.. The heart cath showed no suitable targets for revascularization, left internal mammary artery graft to the LAD was widely patent, saphenous vein grafts were known to be occluded with prior angiography. After this heart cath patient was then cardioverted and had TANYA, he converted to sinus rhythm and then 3 months later continued to have reduced ejection fraction. He has been on GDMT: Eliquis 5 mg twice daily, Coreg 25 mg twice daily, Plavix 75 mg daily, Jardiance 10 mg daily, Imdur 60 mg daily, lisinopril 40 mg daily, Crestor 40 mg daily, Aldactone 12.5 mg daily. He is here for evaluation of ICD as she would like to proceed. PROCEDURAL DETAILS: Patient was placed in trendelenberg position and ultrasound was used to evaluate the patency of left axillary vein and for venous access. Left axillary venous access was obtained using modified seldinger technique using a 5 Finnish micro-puncture needle on two occasions and 0.35 wires were placed. Local infiltration of 1% Lidocaine was performed, and an incision was created in the left upper chest. Dissection was then performed using cautery down to the fascial plane above the muscle. The belly of the pectoralis was identified and with gentle blunt dissection a small pocket was created for the device above the muscle. 6 and 8 Finnish Safesheaths were placed over the wire. An active fixation [employer] ICD lead was then delivered through the 8Fsheath to the right ventricle. After confirmation of lead position on orthogonal views (BEARD and KATHI) to confirm septal position, the screw was activated, and the lead was placed in the right ventricular mid cavity towards the septum. After confirmation of good sensing parameters, injury pattern and pacing thresholds, 10V pacing was done and no diaphragmatic stimulation was noted. It was then secured in the pocket using three 1-0 Silk sutures. Then an active fixation [employer] lead was delivered through the 6Fsheath to the right atrial appendage. After confirmation of lead position on orthogonal views (BEARD and KATHI), the screw was activated. Good sensing parameters, injury pattern but pacing threshold was not done as patient was in Afib. The lead was then tested using Lambert's maneuver. 10V pacing was done and no diaphragmatic stimulation was noted. It was then secured in the pocket using three 1-0 Silk sutures. Pocket hemostasis was secured, and it was then copiously and vigorously irrigated with antibiotic solution. The leads were attached to the generator and then wrapped under the device and the device was tacked to underlying muscle and placed in the pocket. The pocket was closed in layers: subcutaneous layer using 2-0 Vicryl; skin using 2-0 suture. Glue was applied and Tegaderm dressing was placed on top. Lead parameters were then rechecked through the device as noted below. The patient was returned to the short stay room for post procedural observation. No immediate procedural complications were noted. POST PROCEDURE EXAM: Patient was hemodynamically stable. COMPLICATIONS: None. IMPRESSION: 1. Successful dual chamber ICD with excellent pacing and sensing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
[2023-05-02 13:41] LABS: Basophils Percent Auto 0.3 % (0.2-2.0); Eosinophils Absolute Auto 0.1 10^3/uL (0.0-0.7); Eosinophils Percent Auto 1.3 % (0.9-7.0); Hematocrit 44.5 % (42.0-54.0); Hemoglobin 14.5 g/dL (14.0-18.0); Immature Granulocytes Abs Auto 0.03 10^3/uL (0.00-0.03); Immature Granulocytes Pct Auto 0.4 % (0.0-0.5); Lymphocytes Absolute Auto 1.3 10^3/uL (1.2-3.8); Mean Corpuscular HGB Conc 32.6 g/dL (29.9-35.2); Mean Corpuscular Hemoglobin 31.7 pg (25.9-34.0); Mean Corpuscular Volume 97.2 fL (80.0-94.0); Mean Platelet Volume 10.4 fL (9.5-13.5); Monocytes Absolute Auto 0.8 10^3/uL (0.3-0.8); Monocytes Percent Auto 10.5 % (1.7-12.0); Neutrophils Absolute Auto 5.6 10^3/uL (1.4-6.5); Neutrophils Percent Auto 71.5 % (43.0-75.0); Platelet Count 182 10^3/uL (150-450); Red Blood Count 4.58 10^6/uL (4.70-6.10); Red Cell Distribution Width 13.4 % (11.0-15.0); White Blood Count 7.8 10^3/uL (4.0-11.0)
[2023-05-02 14:25] LABS: Anion Gap 10.5; BUN Creatinine Ratio 17.2; Calcium 9.4 mg/dL (8.5-10.1); Carbon Dioxide 28.2 mmol/L (21.0-32.0); Chloride 106 mmol/L (98-107); Estimated GFR (African America >60 (>=60); Estimated GFR (Non-African Ame 60 (>=60); Glucose 118 mg/dL (74-106); Potassium 4.7 mmol/L (3.5-5.1); Sodium 140 mmol/L (136-145)
== END 2023-05-02 12:46 | disposition home or self-care (01) ==
LOC: LAB 12:49
PROVIDERS: PCP Family Medicine; Visit Provider Internal Medicine Cardiovascular Disease
DX: I48.19 Other persistent atrial fibrillation (principal)
CPT/HCPCS: 36415; 80048; 85025

== ENCOUNTER 2023-08-05 11:46 | Emergency (ER) | payer MEDICARE, SELFPAY ==
--- OUTSIDE RECORDS SUMMARY | 2023-08-05 11:52 | XMS_ITS | CCD ---
Author Organization [facility] Care Team Providers Care Nutrition Therapist Name Role Phone Denisse Diaz Attending Unavailable Florentino Panda MD Unavailable Unavailable Lydia Milner Unavailable Unavailable Florentino Panda Unavailable Unavailable ELTAHAWY, AEL Mora Attending Unavailable [place]HAWYALE Admitting Unavailable [facility] Referring Unavailable [facility] Primary Care Unavailable ELTAHAWY, DR AGUERO Admitting [...] CELY, DR TEVIN Fuchs Attending Unavailabl e REINECK, DR TEVIN Fuchs Consulting Unavailabl e FROYECK, DR TEVIN Fuchs Admitting Unavailabl e REQUEST, NONE LISTED Primary Care Unavaila ble TYRESE BURDEN Admitting Unavailable RODRIGOTYRESE Rivas Attending Unavailable RODRIGOTYRESE Rivas Referring Unavailable RODRIGOTYRESE Referring Unavailable JASMYNEYOEL CALLE Attending Unavailable RODRIGOTYRESE Attending Unavailable ROMELAZVILLA Mendoza Attending Unavailable ARIKJAY Attending Unavailable TYRESE BURDEN Referring Unavailable ELTAHAWY, ALE Attending Unavailable RODRIGOTYRESE Rivas Referring Unavailable RODRIGOTYRESE Referring Unavailable RODRIGO, TYRESE Admitting Unavailable TYRESE BURDEN Attending Unavailable Allergies Allergy Classification Reported Allergen(s) Allergy Type Date of Onset Reaction(s) Facility HMG-CoA Reductase Inhibitors (statins) (1 source) atorvastatin Drug Allergy Myalgia [facility] Work Phone: (2 sources) atorvastatin; Translations: [ATORVASTATIN] Drug Allergy 7 [facility] (2 sources) Dextroamphetamine Drug Allergy 6 [facility] Medications Completed/Discontinued Medications Medication Drug Class(es) [...] Active Problems Problem Classification Problem Date Documented Date Episodic/Chronic Calculus of urinary tract (1 source) History of calculus of kidney; Translations: [Personal history of urinary calculi] Episodic Cardiac dysrhythmias (2 sources) Paroxysmal atrial fibrillation; Translations: [Paroxysmal atrial fibrillation] Onset: 06-09-2023 Chronic Complication of device; implant or graft (2 sources) Atherosclerosis of coronary artery bypass graft(s) without angina pectoris; Translations: [Atherosclerosis of coronary artery bypass graft(s) without angina pectoris] Onset: 06-13-2022 Chronic Congestive heart failure; nonhypertensive (6 sources) Acute systolic (congestive) heart failure; Translations: [Chronic systolic (congestive) heart failure] Onset: 06-13-2022 Chronic Coronary atherosclerosis and other heart disease (1 source) Presence of aortocoronary bypass graft; Translations: [PRESENCE AORTOCORONARY BYPASS GRAFT] Onset: 07-04-2022 Episodic Diabetes mellitus without complication (1 source) Type 2 diabetes mellitus without complications; Translations: [TYPE 2 DM WITHOUT COMPLICATIONS] Onset: 05-30-2022 Chronic Disorders of lipid metabolism (1 source) Hypercholesterolemia; Translations: [Pure hypercholesterolemia] Chronic Essential hypertension (1 source) Hypertensive disorder; Translations: [Unspecified essential hypertension] Chronic Open wounds of head; neck; and trunk (1 source) Open wound of nose; Translations: [Open wound of nose, unspecified site, without mention of complication] Episodic Other aftercare (1 source) Other manager terminal (current) drug therapy; Translations: [OTH KITCHEN BATH DESIGNER CURRENT DRUG THERAPY] Onset: 07-04-2022 Episodic Other aftercare (1 source) buttermaker continuous churn (current) use of oral hypoglycemic drugs; Translations: [ALF USE ORAL HYPOGLYCEMIC DX] Onset: 07-04-2022 Episodic Other aftercare (1 source) detention (current) use of antithrombotics/antip latelets; Translations: [KITCHEN BATH DESIGNER ANTITHROMBOT/ANTIPLAT LETS] Onset: 07-04-2022 Episodic Other aftercare (1 source) detention (current) use of anticoagulants; Translations: [ALF CURRNT USE ANTICOAGULANTS] Onset: 07-04-2022 Episodic Other aftercare (1 source) buttermaker continuous churn (current) use of aspirin; Translations: [ALF CURRENT USE OF ASPIRIN] Onset: 05-30-2022 Episodic [...] BUTTOCK] Onset: 05-27-2022 Episodic Unclassified (2 sources) Longstanding persistent atrial fibrillation; Translations: [Longstanding persistent atrial fibrillation] Onset: 03-22-2023 Unclassified (2 sources) Wound Check; Translations: [Wound Check] Onset: 03-22-2023 Past or Other Problems Problem Classification Problem Date Documented Da te Episodic/Chronic NEGATED: Highlighted row has not occurred!Residual codes; unclassified (1 source) Disease Episodic Results Test Name Value Interpretation Reference Range Facility Office Visiton 06-09-2023 Follow-up visit [id number] Raz Wahl 1940 M Date Provider Department Center 06/09/2023 JAY ABARCA Family History Problem Relation Age of Onset Coronary artery disease Father Family Status - Relation Status Age at Father Level of Service:31535 [place] OFFICE/OUTPATIENT ESTABLISHED LOW MDM 20 MIN Normal [facility] Dan[facility] 05-04-2023 MARISSAS -- Attestation signed by Tyrese Burden MD at 05/08/2023 10:35 PM By using the attestations below, the signing clinician agrees that I have read and verify that the documentation has been personally reviewed by me and ensure that the documentation accurately reflects the encounter. GC: I personally saw this patient on the day of the encounter, performed the arteaga portion(s) of the service and participated in the management and confirm the resident's documentation. Please note there may be an additional personal documentation from me. Patient: Lewis Wahl Procedure Information Date/Time: 05/04/231199 Procedure: Cardioversion - 1 month s/p initiating amio and being on AC Location: [facility] DESTATIC[facility]ER FEEDER HOLDING ROOM / [facility] (Cath) Providers: Tyrese Burden MD Clinical information reviewed: Tobacco Allergies Meds Med Hx Surg Hx Fam Hx Physical Exam Airway Mallampati: III Cardiovascular Rhythm: irregular Rate: normal Dental Pulmonary Abdominal Anesthesia Plan ASA 3 Anesthetic plan and risks discussed with patient. Use of blood products discussed with patient who. Plan discussed with attending. Additional Equipment Requests Normal [facility] HPon 05-04-2023 -- Attestation signed by Tyrese Burden MD at 05/08/2023 10:35 PM By using the attestations below, the signing clinician agrees that I have read and verify that the documentation has been personally reviewed by me and ensure that the documentation accurately reflects the encounter. GC: I personally saw this patient on the day of the encounter, performed the arteaga portion(s) of the service and participated in the management and confirm the resident's documentation. Please note there may be an additional personal documentation from me. Interval Procedural H&P Lewis Wahl is a 82 y.o. male [...] failure (CMS/HCC) Longstanding persistent atrial fibrillation (CMS/HCC) Medical History Past Medical History: Diagnosis Date Atrial fibrillation (CMS/HCC) CHF (congestive heart failure) ([facility]/HCC) Coronary artery disease Diabetes mellitus ([facility]/HCC) Hyperlipidemia Hypertension Family History Family History Problem Relation Name Age of [...] Discharged on 03/13/2023 Component Date Value Ref Rang (more content not included)... [facility] NURSNOTEon 05-04-2023 NURSNOTE RN educated pt on d/ c instructions. RN encouraged pt to voice any questions or concerns. Pt verbalizes no questions or concerns at this time. Pt was wheeled off of unit with all of belongings. Normal [facility] Orders Onlyon 04-27-2023 Orders Only [id number] Raz Wahl er A 1940 M Date Provider Department Center 04/27/2023 Graeme-KASSANDRA MORENO [facility] Family History Problem Relation Age of Onset Coronary artery disease Father Family Status - Relation Status Age at Father [facility] Office Visiton 03-22-2023 Follow-up visit [id number] Raz Wahl er A 1940 M Date Provider Department Center 03/22/2023 YOEL BOBBY ENRIQUE [facility] Family History Problem Relation Age of Onset Coronary artery disease Father Family Status - Relation Status Age at Father Level of Service:93289 [place] POSTOP FOLLOW UP VISIT RELATED TO ORIGINAL PX Reason for Visit and Comments: Wound Check [811893] [facility] HPon [facility] Reason for visit: CMP [...] Past Medical History: Diagnosis Date Atrial fibrillation ([facility]/HCC) CHF (congestive heart failure) ([facility]) Coronary artery disease Diabetes mellitus ([facility]) Hyperlipidemia Hypertension PSH: Past Surgical History: Procedure [...] no le (more content not included)... [facility] NURSNOTEon 03-13-2023 NURSNOTE RN educated pt on d/ c instructions. RN encouraged pt to voice any questions or concerns. Pt verbalizes no questions or concerns at this time. Normal [facility] NURSNOTE CHG wipes and betadi ne nasal swabs completed. [facility] Orders Onlyon 03-13-2023 Orders Only [id number] Raz Wahl A 1940 M Date Provider Department Center 03/13/2023 [facility] Family History Problem Relation Age of Onset Coronary artery disease Father Family Status - Relation Status Age at Father [facility] Orders Onlyon 11-14-2022 Orders Only [id number] Raz Wahl A 1940 Date Provider Department Center 11/14/2022 [facility] Family History Problem Relation Age of Onset Coronary artery disease Father Family Status - Relation Status Age at Father [facility] Documentationon 09-23-2022 Documentation [id number] Raz Wahl A 1940 Date Provider Department Center 09/23/2022 VILLA HUNT ENRIQUE [facility] Family History Problem Relation Age of Onset Coronary artery disease Father Family Status - Relation Status Age at Father [facility] Office Visiton 09-13-2022 Follow-up visit [id number] Raz Wahl A 1940 Date Provider Department Center 09/13/2022 TYRESE CHRISTY ENRIQUE [facility] Family History Problem Relation Age of Onset Coronary artery disease Father Family Status - Relation Status Age at Father Level of Service:25956 [place] OFFICE/OUTPATIENT NEW HIGH MDM 60-74 MINUTES Normal [facility] Office Visiton 08-25-2022 Follow-up visit [id number] Raz Wahl A 1940 Date Provider Department Center 08/25/2022 VILLA HUNT ENRIQUE [facility] Family History Problem Relation Age of Onset Coronary artery disease Father Family Status - Relation Status Age at Father Level of Service:85753 [place] OFFICE/OUTPATIENT ESTABLISHED MOD MDM 30-39 MIN Reason for Visit and Comments: Follow-up [616424] - f/u muga scan Normal [facility] Orders Onlyon 08-25-2022 Orders Only [id number] Raz Wahl A 1940 Date Provider Department Center 08/25/2022 KAREN LARSON CARD [facility] Family History Problem Relation Age of Onset Coronary artery disease Father Family Status - Relation Status Age at Father Normal [facility] CBC AUTO DIFFon 06-30-2022 BASO # 0.0 103/ul Normal 0.0-0.1 [facility] Comment on above: Performed By: #### C BC #### [facility] [address] [address] [address] Marilyn Wahl Basophils/100 WBC (Bld) 0.2 % Normal 0.2-2.0 [facility] Comment on above: Performed By: #### C BC #### [facility] [address] [address] [address] Marilyn Wahl EO # 0.1 103/ul Normal 0.0-0.7 [facility] Comment on above: Performed By: #### C BC #### [facility] [address] [place] [address] Dr. Marilyn Wahl Eosinophils/100 WBC (Bld) 2.0 % Normal 0.9-7.0 [facility] Comment on above: Performed By: #### C BC #### [facility] [address] [place] [address] Dr. Marilyn Wahl Erythrocyte distribution width (RBC) [Ratio] 13.3 % Normal 11.0-15.0 [facility] Comment on above: Performed By: #### C BC #### [facility] [address] [place] [address] Dr. Marilyn Wahl Hematocrit (Bld) [Volume fraction] 42.9 % Normal 42.0-54.0 [facility] Comment on above: Performed By: #### C BC #### [facility] [address] [place] [address] Dr. Marilyn Wahl Hemoglobin (Bld) [Mass/Vol] 14.6 g/dL Normal 14.0-18.0 [facility] Comment on above: Performed By: #### C BC #### [facility] [address] [place] [address] Dr. Marilyn Wahl IG # 0.01 10e3/ul Normal 0.00-0.03 [facility] Comment on above: Performed By: #### C BC #### [facility] [address] [place] [address] Dr. Marilyn Wahl IG % 0.2 % Normal 0.0-0.5 [facility] Comment on above: Performed By: #### C BC #### [facility] [address] [place] [address] Dr. Marilyn Wahl LYMPH # 1.0 103/ul Critically low 1.2-3.8 [facility] Comment on above: Performed By: #### C BC #### [facility] [address] [place] [address] Dr. Marilyn Wahl Lymphocytes/100 WBC (Bld) 15.2 % Critically low 20.5-60.0 [facility] Comment on above: Performed By: #### C BC #### [facility] [address] [place] [address] Dr. Marilyn Wahl MANUAL DIFF REQ NO Normal [facility] Comment on above: Performed By: #### C BC #### [facility] [address] [place] [address] Dr. Marilyn Wahl MCH (RBC) [Entitic mass] 32.1 pg Normal 25.9-34.0 [facility] Comment on above: Performed By: #### C BC #### [facility] [address] [place] [address] Dr. Marilyn Wahl MCHC (RBC) [Mass/Vol] 34.0 g/dL Normal 29.9-35.2 [facility] Comment on above: Performed By: #### C BC #### [facility] [address] [place] [address] Dr. Marilyn Wahl MCV (RBC) [Entitic vol] 94.3 fL Critically high 80.0-94.0 [facility] Comment on above: Performed By: #### C BC #### [facility] [address] [place] [address] Dr. Marilyn Wahl MONO # 0.6 103/ul Normal 0.3-0.8 [facility] Comment on above: Performed By: #### C BC #### [facility] [address] [place] [address] Dr. Marilyn Wahl Monocytes/100 WBC (Bld) 9.9 % Normal 1.7-12.0 [facility] Comment on above: Performed By: #### C BC #### [facility] [address] [place] [address] Dr. Marilyn Wahl NEUT # 4.7 103/ul Normal 1.4-6.5 [facility] Comment on above: Performed By: #### C BC #### [facility] [address] [place] [address] Dr. Marilyn Wahl Neutrophils/100 WBC (Bld) 72.5 % Normal 43.0-75.0 [facility] Comment on above: Performed By: #### C BC #### [facility] [address] [place] [address] Dr. Marilyn Wahl Platelet mean volume (Bld) [Entitic vol] 10.0 fL Normal 9.5-13.5 [facility] Comment on above: Performed By: #### C BC #### [facility] [address] [place] [address] Dr. Marilyn Wahl PLT 178 103/ul Normal 150-450 [facility] Comment on above: Performed By: #### C BC #### [facility] [address] [place] [address] Dr. Marilyn Wahl RBC 4.55 106/ul Critically low 4.70-6.10 [facility] Comment on above: Performed By: #### C BC #### [facility] [address] [place] [address] Dr. Marilyn Wahl WBC 6.4 103/ul Normal 4.0-11.0 [facility] Comment on above: Performed By: #### C BC #### [facility] [address] [place] [address] Dr. Marilyn Wahl PROF CHEM 8 (BAS METB)on Anion gap [Moles/Vol] 11.3 mmol/L Normal [facility] Comment on above: Performed By: #### B MP #### [facility] [address] [address] [address] Marilyn Wahl Calcium [Mass/Vol] 8.7 mg/dL Normal 8.5-10.1 [facility] Comment on above: Performed By: #### B MP #### [facility] [address] [address] [address] Marilyn Wahl Chloride [Moles/Vol] 106 mmol/L Normal 98-107 [facility] Comment on above: Performed By: #### B MP #### [facility] [address] [place] [address] Dr. Marilyn Wahl CO2 [Moles/Vol] 26.1 mmol/L Normal 21.0-32.0 [facility] Comment on above: Performed By: #### B MP #### [facility] [address] [place] [address] Dr. Marilyn Wahl Creatinine [Mass/Vol] 1.02 mg/dL Normal 0.70-1.30 [facility] Comment on above: Performed By: #### B MP #### [facility] [address] [place] [address] Dr. Marilyn Wahl EGFR-AF CANADIAN >60 Normal >=60 [facility] Comment on above: Performed By: #### B MP #### [facility] [address] [place] [address] Dr. Marilyn Wahl EGFR-NON AF CANADIAN >60 Normal >=60 [facility] Comment on above: Performed By: #### B MP #### [facility] [address] [address] [address] Marilyn Wahl Glucose [Mass/Vol] 156 mg/dL Critically high 74-106 [facility] Comment on above: Performed By: #### B MP #### [facility] [address] [place] [address] Dr. Marilyn Wahl Potassium [Moles/Vol] 4.4 mmol/L Normal 3.5-5.1 [facility] Comment on above: Performed By: #### B MP #### [facility] [address] [place] [address] Dr. Marilyn Wahl Sodium [Moles/Vol] 139 mmol/L Normal 136-145 [facility] Comment on above: Performed By: #### B MP #### [facility] [address] [address] [address] Marilyn Wahl Urea nitrogen [Mass/Vol] 21.0 mg/dL Critically high 7.0-18.0 [facility] Comment on above: Performed By: #### B MP #### [facility] [address] [address] [address] Marilyn Wahl Urea nitrogen/Creatinine [Mass ratio] 20.6 mg/mg Normal [facility] Comment on above: Performed By: #### B MP #### [facility] [address] [address] [address] Marilyn Wahl Office Visiton 06-13-2022 Follow-up visit [id number] Raz Wahl 1940 M Date Provider Department Center 06/13/2022 ALE DE LEÓN [facility] Family History Problem Relation Age of Onset Coronary artery disease Father Family Status - Relation Status Age at Father Level of Service:66510 [place] OFFICE/OUTPATIENT ESTABLISHED MOD MDM 30-39 MIN Reason for Visit and Comments: Coronary Artery Disease [187] Congestive Heart Failure [127] Hyperlipidemia [182] Atrial Fibrillation [80] Hypertension [088285] Normal [facility] CULTURE ABSCESSon 05-27-2022 CULTURE ABSCESS Culture Observations : ANAEROBE PRESENT. Isolate 1 Finegoldia magna Moderate growth of Normal [facility] Comment on above: Performed By: #### A BCESCX #### [facility] [address] [place] [address] Dr. Marilyn Wahl ECHOCARDIO M/2D COMPLETEon 0 09-23-2021 ECHOCARDIO M/2D COMPLETE Patient: LEWIS WAHL. Exam Date: 09/23/2021 : 1940 Gender:M Ordering : DR ALE SANTOS M.D. Admission #: [id number] Family : JOSEP TANIA MILNER . Order #: [id number] CLICK HERE TO VIEW EXAM ECHOCARDIOGRAM REPORT [...] Area(A2C): 27.10 cm2 Left Atrium Systolic Volume(A2C): 26168 mm3 Mitral Valve Mitral Valve E-Wave Peak [...] Rizzo M.D. on 2021 at 19:[address] [facility] Cardiovascular Lab Reporton 05-20-2021 Cardiovascular Lab Report [facility] Patient Name: [facility] MR #: [id number] Physician: Alistair Garcia of MD [facility] Medicine Service Date: 05/20/2021 Division of Birthdate: 1940 Cardiology Room #: [facility] Cardiovascular Services [place] [address] Cardiovascular Laboratory Report PROCEDURE PERFORMED: Transesophageal echocardiogram. INDICATION: Atrial fibrillation with RVR. FELLOW DOCTOR: Nikki Gagnon MD. PROCEDURE IN DETAIL: An informed consent was obtained from the patient after explaining indication, risks, and benefits, and alternatives. The patient understood and signed and agreed the consent form. The patient was brought to the finishing lab technician and TANYA, transesophageal echocardiogram, was performed under [...] P/Nikki Gagnon MD Date Trans: 05/20/2021 01:45 P/misael [id number] Normal [facility] Cardiovascular Lab Report [facility] Patient Name: [facility] MR #: [id number] Department of Physician: Scott Guevara M.D. Division of Service Date: 05/20/2021 Cardiology Birthdate: 1940 Adult Cardiovascular Room #: [facility] [address] [facility] [place] [address] Cardiovascular Laboratory Report FINAL IMPRESSIONS: 1. Severe [...] physician as scheduled. 6. Follow up with [facility] Cardiology as scheduled. PROCEDURES: Bilateral selective coronary [...] the left radial artery was obtained. A 6-[place] Islander glide sheath was inserted without difficulty. Bilateral [...] gives rise to prominent septal perforators supplying zmeo-ay-vsrup collaterals. Distal filling is seen via a patent left internal mammary artery graft to the left anterior descending. The diagonal branch showed diffuse disease. Ramus intermedius: This is a small to moderate size vessel with a 70% ostial stenosis. Left circumflex coronary artery: This shows ectasia and significant tortuosity in the proximal portion followed by a 60% stenosis. There is evidence of rgat-vq-xgfvi collaterals. Right coronary artery: This is a [...] A Ale Santos M.D. Date Dict: 05/20/2021/11:19 A/Ale Santos M.D. Date Trans: 05/20/2021 11:54 A/mmo [id number] cc: KENYA Rodriguez Cln [address] [place] [address] Normal [facility] APTTon 09-27-2018 aPTT Coag time (Bld) 36 s Normal 28 - 38 [facility] Comment on above: Result Comment: THE APTT IS NO LONGER USED FOR MONITORING UNFRACTIONATED HEPARIN THERAPY. FOR MONITORING HEPARIN THERAPY, USE THE HEPARIN ASSAY. Performed By: #### A PTT #### [address] [address] CBC AND DIFFERENTIALon 09-27 % AUTOMATED IMMATURE GRAN 0.1 % Normal 0.0 - 0.9 [facility] Comment on above: Result Comment: Perc ent differential counts (%) should be interpreted in the context of the absolute cell counts (cells/L). Performed By: #### C BCDF #### [address] [address] % NEUTROPHIL 67.7 % Normal 40.0 - 80.0 [facility] Comment on above: Performed By: #### C BCDF #### [address] [address] Basophils/100 WBC (Bld) 0.1 % Normal 0.0 - 2.0 [facility] Comment on above: Performed By: #### C BCDF #### [address] [address] Basophils/100 WBC (Bld) 0.01 x10E9/L Normal 0.00 - 0.10 [facility] Comment on above: Performed By: #### C BCDF #### [address] [address] Eosinophils #/vol (Bld) 0.25 10*3/uL Normal 0.00 - 0.40 [facility] Comment on above: Performed By: #### C BCDF #### [address] [address] Eosinophils/100 WBC (Bld) 3.4 % Normal 0.0 - 6.0 [facility] Comment on above: Performed By: #### C BCDF #### [address] [address] Erythrocyte distribution width Ratio (RBC) 12.7 % Normal 11.5 - 14.5 [facility] Comment on above: Performed By: #### C BCDF #### [address] [address] Hematocrit Volume Fraction (Bld) 43.2 % Normal 41.0 - 52.0 [facility] Comment on above: Performed By: #### C BCDF #### [address] [address] Hemoglobin mass conc (Bld) 14.3 g/dL Normal 13.5 - 17.5 [facility] Comment on above: Performed By: #### C BCDF #### [address] [address] Lymphocytes #/vol (Bld) 1.29 10*3/uL Normal 0.80 - 3.00 [facility] Comment on above: Performed By: #### C BCDF #### [address] [address] Lymphocytes/100 WBC (Bld) 17.5 % Normal 13.0 - 44.0 [facility] Comment on above: Performed By: #### C BCDF #### [address] [address] MCHC mass conc (RBC) 33.1 g/dL Normal 32.0 - 36.0 [facility] Comment on above: Performed By: #### C BCDF #### [address] [address] MCV Entitic volume (RBC) 93 fL Normal 80 - 100 [facility] Comment on above: Performed By: #### C BCDF #### [address] [address] [address] Monocytes #/vol (Bld) 0.83 10*3/uL High 0.05 - 0.80 [facility] Comment on above: Performed By: #### C BCDF #### [address] [address] Monocytes/100 WBC (Bld) 11.2 % Normal 2.0 - 10.0 [facility] Comment on above: Performed By: #### C BCDF #### [address] [address] Neutrophils #/vol (Bld) 5.00 10*3/uL Normal 1.60 - 5.50 [facility] Comment on above: Performed By: #### C BCDF #### [address] [address] Platelets #/vol (Bld) 193 10*3/uL Normal 150 - 450 [facility] Comment on above: Performed By: #### C BCDF #### [address] [address] RBC #/vol (Bld) 4.64 x10E12/L Normal 4.50 - 5.90 [facility] Comment on above: Performed By: #### C BCDF #### [address] [address] WBC #/vol (Bld) 7.4 10*3/uL Normal 4.4 - 11.3 [facility] Comment on above: Performed By: #### C BCDF #### [address] [address] COMPREHENSIVE PANELon 2018 Albumin mass conc 3.8 g/dL Normal 3.4 - 5.0 [facility] Comment on above: Performed By: #### C MP #### [address] [address] ALP enzyme act/vol 97 U/L Normal 33 - 136 [facility] Comment on above: Performed By: #### C MP #### [address] [address] ALT enzyme act/vol 19 U/L Normal 10 - 52 [facility] Comment on above: Result Comment: Princess ents treated with Sulfasalazine may generate falsely decreased results for ALT. Performed By: #### C MP #### [address] [address] Anion gap molar conc 10 mmol/L Normal 10 - 20 [facility] Comment on above: Performed By: #### C MP #### [address] [address] AST enzyme act/vol 17 U/L Normal 9 - 39 [facility] Comment on above: Performed By: #### C MP #### [address] [address] Bilirubin mass conc 0.7 mg/dL Normal 0.0 - 1.2 [facility] Comment on above: Performed By: #### C MP #### [address] [address] Calcium mass conc 9.1 mg/dL Normal 8.6 - 10.3 [facility] Comment on above: Performed By: #### C MP #### [address] [address] Chloride molar conc 106 mmol/L Normal 98 - 107 [facility] Comment on above: Performed By: #### C MP #### [address] [address] Creatinine mass conc 0.96 mg/dL Normal 0.50 - 1.30 [facility] Comment on above: Performed By: #### C MP #### [address] [address] GFR- AM. >60 Normal >60 [facility] Comment on above: Result Comment: CALC ULATIONS OF ESTIMATED GFR ARE PERFORMED USING THE MDRD STUDY EQUATION FOR THE IDMS-TRACEABLE CREATININE METHODS. CLIN CHEM 2007;53:766-72 Performed By: #### C MP #### [address] [address] GFR-NON AM. >60 Normal >60 [facility] Comment on above: Performed By: #### C MP #### [address] [address] Glucose mass conc 171 mg/dL High 74 - 99 [facility] Comment on above: Performed By: #### C MP #### [address] [address] HCO3 molar conc (Bld) 28 mmol/L Normal 21 - 32 [facility] Comment on above: Performed By: #### C MP #### [address] [address] Potassium molar conc 3.8 mmol/L Normal 3.5 - 5.3 [facility] Comment on above: Performed By: #### C MP #### [address] [address] Protein mass conc 6.4 g/dL Normal 6.4 - 8.2 [facility] Comment on above: Performed By: #### C MP #### [address] [address] Sodium molar conc 140 mmol/L Normal 136 - 145 [facility] Comment on above: Performed By: #### C MP #### [address] [address] Urea nitrogen mass conc 13 mg/dL Normal 6 - 23 [facility] Comment on above: Performed By: #### C MP #### [address] [address] PT/INRon 09-27-2018 INR Coag RelTime (PPP) 1.0 {INR} Normal 0.9 - 1.1 [facility] Comment on above: Performed By: #### P TINR #### [address] [address] Prothrombin time (PT) Coag time (PPP) 11.8 s Normal 9.7 - 12.7 [facility] Comment on above: Performed By: #### P TINR #### [address] [address] Urine Cultureon 05-08-2018 Bacteria identified Cx Nom (U) [facility] OR[facility]: Escherichia coli (O:ESCCOL) [place] Count >100,000 Aerobic KAMALJIT Charge (Neg) --- [...] RESISTANT TO ALL B-LACTAM DRUGS. PERFORMED BY: [place] [address] PATHOLOGIST [employer] TECHNICIAN CHRIST CANDELARIA M.D. [facility] Comment on above: Performed By: #### C UU #### [address] Encounters Encounter Date Encounter Type Care Provider Facility Start: 06-09-2023 End: 06-09-2023 ambulatory JAY ELISE [facility] Start: 05-15-2023 End: 05-15-[address] [facility] Start: 05-04-[address] [facility] Start: 05-04-2023 End: 05-04-[address] [facility] Start: 03-22-2023 End: 03[facility] Start: 03-13-[address] [facility] Start: 03-13-2023 End: 03-13-[address] [facility] Start: 09-13-2022 End: 09-13-[address] [facility] Start: 08-25-2022 End: 08-25-2022 [facility] Start: 07-05-2022 End: 07-05-[address] TEVIN TA Facility:[facility] Start: 06-30-2022 End: 06-30-2022 ambulatory GRAEME BECKHAM Facility:[facility] Start: 06-13-2022 End: 06-13-2022 [facility] Start: 05-27-2022 End: 05-27-[address] CHINEDU AGUILAR . Facility:[facility] Start: 02-03-[address] ALE SANTOS [facility] Start: 10-12-[address] AEL Hirsch ty:[facility] Start: 09-23-2021 End: [address] ALE SANTOS Facility:[facility] Start: 05-20-2021 End: 05-21-2021 ambulatory ALE SANTOS Facility:[facility] Start: 05-08-2018 End: 05-08-2018 Patient encounter procedure Denisse Diaz Facility:[facility] Patient encounter status Florentino Panda MD [facility] Work Phone: Procedures Date Procedure Procedure Detail Performing Clinician Start: 09-27-2018 Follow-up visit Bypass graft Florentino Panda MD Cataract surgery Florentino oliveira MD Mohs surgery Florentino Panda MD Tooth extraction Florentino oliveira MD Payers Date Payer Category Payer Medicare [id number] 2009 Unknown [id number] 1959 Self-pay 1959 Unknown [id number] 1938 Unknown [id number] 2.16.8 [id number] 1938 Unknown [id number] 2.16.84 [id number] 1938 Unknown [id number] 2.16.84 [id number] 1938 Unknown [id number] 2.16.84 [id number] 1938 Unknown [id number] 2.16.84 [id number] 1938 Unknown [id number] 2.16.84 [id number] 1938 Unknown [id number] 2.16.84 [id number] Unknown [id number] Social History Date Type Detail Facility NEGATED: Highlighted row - - [facility] Work Phone: Functional Status Date Assessment Result Facility NEGATED: Highlighted row Functional performance Functional status health issues are not documented Disease [facility] Work Phone: Mental Status Date Assessment Result Facility NEGATED: Highlighted row Cognitive function [Interpretation] Cognitive status health issues are not documented Disease [facility] Work Phone: Clinical Notes 06-13-2022 to 06-09-2023 Note Date & Type Note Facility 06-09-2023 Note Coronary artery dise ase is stable Continue GDMT continue risk factor modifications- heart healthy diet, regular exercise as tolerated and continue all medications. [facility] 06-09-2023 Note Currently he remains in rhythm- currently A paced Continue anticoagulation with eliquis, denied any bleeding tendencies Continue amiodarone and coreg. RTC 3 months [facility] 06-09-2023 Note [facility] CARDIOLOGY PROGR ESS NOTE HPI: Lewis Wahl is a 82 y.o. male here for F/U s/p recent cardioversion Patient here for follow up cardioversion performed on 05/04/[address] Burden. Had epistaxis 2 weeks ago, which bled pretty good he says. Denies chest pain, SOB, palpitations, and lightheadedness/syncope. Doesn't know what medications he takes. List printed and given to him. Currently states he feels pretty good, denied any activity limiting symptoms. Review of Systems HENT: Positive for nosebleeds. Skin: Positive for dry skin. All other systems reviewed and are negative. Visit Vitals BP 124/60 (BP Location: Right arm, Patient Position: Sitting) Pulse 60 Ht 1.702 m (5' 7 ) Wt 84.8 kg (187 lb) SpO2 96% BMI 29.29 kg/m??? Smoking Status Former BSA 2 m??? Allergies Allergen Reactions Atorvastatin Medications: Current Outpatient Medications on File Prior to Visit Medication Sig Dispense Refill amiodarone (Pacerone) 200 mg tablet Take 1 tablet (200 mg) by mouth in the morning. 90 tablet 3 apixaban (Eliquis) 5 mg tablet Take 5 mg by mouth every 12 (twelve) hours. carvedilol (Coreg) 25 mg tablet Take 25 mg by mouth every 12 (twelve) hours. cholecalciferol (Vitamin D-3) 25 MCG (1000 UT) capsule Take 25 mcg by mouth in the morning. clopidogrel (Plavix) 75 mg tablet Take 75 mg by mouth in the morning. Takes at 12Noon empagliflozin (Jardiance) 10 mg Take 5 mg by mouth in the morning. isosorbide mononitrate ER (Imdur) 60 mg 24 hr tablet Take 60 mg by mouth in the morning. Takes at 12noon lisinopril 40 mg tablet Take 40 mg by mouth in the morning. Takes at 12noon metFORMIN (Glucophage) 1,000 mg tablet Take 1,000 mg by mouth every 12 (twelve) hours. nitroglycerin (Nitrostat) 0.[address] 0.4 mg under the tongue every 5 (five) minutes if needed for chest pain. rosuvastatin (Crestor) 40 mg tablet Take 40 mg by mouth in the morning. spironolactone (Aldactone) 25 mg tablet Take 0.5 tablets (12.5 mg) by mouth in the morning. 45 tablet 3 No current facility-administered medications on file prior to visit. Physical Exam: Constitutional: Appearance: Normal appearance. Without apparent distress HENT: Head: Normocephalic and atraumatic. Nose: Nose normal. Mouth/Throat: Mouth: Mucous membranes are moist. Eyes: Extraocular Movements: Extraocular movements intact. Conjunctiva/sclera: Conjunctivae normal. Neck: Vascular: No JVD. Cardiovascular: Rate and Rhythm: Normal rate and regular rhythm. Pulses: Radial pulses are 3 on the right side and 3on the left side. Posterior tibial pulses are 3 on the right side and 3 on the left side. Heart sounds: Normal heart sounds, S1 normal and S2 normal. Pulmonary: Effort: Pulmonary effort is normal. Breath sounds: Normal breath sounds. Abdominal: General: Bowel sounds are normal. Palpations: Abdomen is soft. Musculoskeletal: General: Normal range of motion. Cervical back: Normal range of motion. Right lower leg: No edema. Left lower leg: No edema. Skin: General: Skin is warm and dry. Capillary Refill: Capillary refill takes less than 2 seconds. Neurological: General: No focal deficit present. Mental Status: he is alert and oriented to person, place, and time. Psychiatric: Mood and Affect: Mood normal. Behavior: Behavior normal. Thought Content: Thought content normal. Judgment: Judgment normal. Labs: 05/03/23 Cbc normal Renal function normal K+ normal, NA normal Last lab values have been reviewed CV Testing: EKG today- A paced rhythm Device interrogation 05/15/23 Muga scan 08/2022 Cardiac cath 05/20/21 05/05/21 TTE RV size and function normal 05/05/21 stress test No echocardiogram results found for the past 12 months Assessment/Plan: Paroxysmal atrial fibrillation (CMS/HCC) Currently he remains in rhythm- currently A paced Continue anticoagulation with eliquis, denied any bleeding tendencies Continue amiodarone and coreg. RTC 3 months Coronary atherosclerosis Coronary artery disease is stable Continue GDMT continue risk factor modifications- heart healthy diet, regular exercise as tolerated and continue all medications. RTC in 3 months and q 6 months for device/AICD interrogation [facility] 06-09-2023 Note Patient here for fol low up cardioversion performed on 05/04/[address] Burden. Had epistaxis 2 weeks ago, which bled pretty good he says. Denies chest pain, SOB, palpitations, and lightheadedness/syncope. Doesn't know what medications he takes. List printed and given to him. Review of Systems HENT: Positive for nosebleeds. Skin: Positive for dry skin. All other systems reviewed and are negative. [facility] 05-04-2023 Note DIRECT CARDIOVERSION PROCEDURE NOTE Date: 05/04/2023. Type of procedure: DC Cardioversion. Performed by: Tyrese Burden MD Informed consent: Signed by patient. Indication: 82 year old with past medical history of systolic heart failure persistent A-fib, hyperlipidemia, hypertension, CAD status post CABG, DM2 on metformin (no insulin required) underwent dual chamber ICD and diagnosed with recent A-fib. He was loaded with Amio and DOAC and brought for DCCV. He is currently Eliquis which he seems to tolerate without any issues. He had been on uninterrupted anticoagulation for minimum of 4 weeks. Hence, TANYA was deferred. Preparation and technique: Patient was brought into the procedure room. After an informed consent was obtained following a discussion with the patient where I explained the risk and benefit of the procedure that is not limited to skin cruz, fluid in the lungs, heart attack, stroke, or even , though that is very rare. Patches were placed in anteroposterior direction and once patient was made comfortable with Versed and Fentanyl. Following sedation, the patient underwent synchronized cardioversion using 360J which converted to Av paced rhythm. Post procedure, the patient was stable. No complications noted. Plan: Continue anticoagulation and consider ablation. Tyrese Burden MD Cardiac Electrophysiology [facility] 03-22-2023 Note Cardiovascular Medic [facility] SUBJECTIVE Chief Complaint Patient presents with [...] Atrial fibrillation (CMS/HCC) CHF (congestive heart failure) ([facility]/HCC) Coronary artery disease Diabetes mellitus (CMS/HCC) Hyperlipidemia Hypertension Family History Problem Relation Name [...] Chloride 03/08/2023 106 (more content not included)... [facility] 03-13-2023 Note DUAL CHAMBER ICD IMP LANT PROCEDURE NOTE DATE OF PROCEDURE: 03/13/2023 PERFORMING PHYSICIAN: Dr. Tyrese Burden CONSENT: Patient LOCATION: EP Lab PROCEDURE PERFORMED: 1. Implantation of dual chmaber ICD ([employer]) 2. Ultrasound guided venous access INDICATIONS: [...] using modified seldinger technique using a 5 [place] Island[place] micro-puncture needle on two occasions and 0.35 [...] device above the muscle. 6 and 8 [place] Island[place] Safesheaths were placed over the wire. An active fixation [employer] ICD lead was then delivered through the 8Fsheath to the right ventricle. After confirmation of lead position on orthogonal views (BEARD and MOHAWK) to confirm septal position, the screw was activated, and the lead was placed in the right ventricular mid cavity towards the septum. After confirmation of good sensing parameters, injury pattern and pacing thresholds, 10V pacing was done and no diaphragmatic stimulation was noted. It was then secured in the pocket using three 1-0 Silk sutures. Then an active fixation [employer] lead was delivered through the 6Fsheath to the right atrial appendage. After confirmation of lead position on orthogonal views (BEARD and MOHAWK), the screw was activated. Good sensing parameters, [...] of AC. Tyrese Burden MD Cardiac Electrophysiology [facility] 03-13-2023 Note Patient: Lewis cee Procedure Information Date/Time: 03/13/23 1000 Procedure: ICD DC new Location: [facility] DESTATICIZER FEEDER 1 / [facility] (Cath) Providers: Tyrese Burden MD Clinical information reviewed: Tobacco Allergies Meds Med Hx Surg Hx Fam Hx Physical Exam Airway Mallampati: II TM distance: >3 FB Neck ROM: full Cardiovascular Dental Pulmonary Abdominal Anesthesia Plan ASA 2 CSE Anesthetic plan and risks discussed with patient. Use of blood products discussed with patient who. Additional Equipment Requests [facility] 03-06-2023 Note princess Luciano ent's emergency contact [...] call back with any questions or concerns. [facility] 11-18-2022 Note Have not been able t o reach patient for pre procedure instructions. Did get into contact with his contact who is a friend. She was going to have Mr. Wahl return my call - have not received a call as of 9:40am on 11/18/2022. [facility] 09-13-2022 Note Patient here to disc uss [...] All other systems reviewed and are negative. [facility] Electrophysiology Consult Note Reason for visit: CMP [...] Past Medical History: Diagnosis Date Atrial fibrillation ([facility]) CHF (congestive heart failure) ([facility]) Coronary artery disease Diabetes mellitus ([facility]) Hyperlipidemia Hypertension PSH: Past Surgical History: Procedure [...] Psych: no depression, (more content not included)... [facility] 09-08-2022 Note - stable at this marquise e, continue medications including Imdur 60 mg, Crestor 40 mg, Plavix 75 mg and nitroglycerin as needed [facility] 09-08-2022 Note - stable, [facility] - [id number] at le ast 4 for age, heart failure, hypertension - continue Eliquis 5 mg twice daily, he is on Plavix for CAD - may need consideration of A-fib ablation versus AV node ablation, recent echo 09/2021 shows moderately dilated LA [facility] 09-08-2022 Note -NYHA II, pending [facility] [...] daily, Crestor 40 mg, Plavix 75 mg [facility] 08-25-2022 Note Patient is here toda y to follow up om muga screen Review of Systems HENT: Positive for nosebleeds. Musculoskeletal: Positive for arthritis and muscle weakness. Neurological: Positive for weakness. All other systems reviewed and are negative. [facility] 08-25-2022 Note [facility] Electrophysiology Consult Note Reason [...] Past Medical History: Diagnosis Date Atrial fibrillation ([facility]) [place]congestive [place] Coronary artery disease Diabetes mellitus [place] Hyperlipidemia Hypertension PSH: Past Surgical History: Procedure [...] visit. ROS: C (more content not included)... [facility] 06-13-2022 Note a [facility] 06-13-2022 Note m [facility] 06-13-2022 Note [facility] Cardiology Clinic Note Chief Complaint: Patient [...] physician as scheduled. 6. Follow up with [facility] Cardiology as scheduled. PROCEDURES: Bilateral selective coronary angiography and angiography of the left internal mammary artery gra (more content not included)... [facility] Instructions Name Instructions not documented [facility] Work Phone: Summary Purpose Family History No Family [...] section and content) DATE CREATED AUTHOR 05/28/2018 [facility] DATE CREATED AUTHOR AUTHOR'S ORGANIZ ATION 09/28/2018 [employer] DATE CREATED AUTHOR AUTHOR'S ORGANIZ ATION 09/28/2018 [facility] DATE CREATED AUTHOR AUTHOR'S ORGANIZ ATION 06/11/2021 [facility] DATE CREATED AUTHOR AUTHOR'S ORGANIZ ATION 08/09/2022 [facility] DATE CREATED AUTHOR AUTHOR'S ORGANIZ ATION 06/11/2023 [facility] FOR RECORDS PERTAINING TO PATIENTS WHO [...] BE BASED ON THE PRIMARY CLINICAL RECORDS. [facility]. provides no warranty or guarantee of the accuracy or completeness of information in this document.
[2023-08-05 11:53] VITALS: BP 164/72; PULSE 60; TEMP 37; O2SAT 98; BMI 28.2
[2023-08-05] MEDS: ADACEL DIPH,PERTUSS(ACELL),TET VAC/PF 0.5 ML ADULT SYRINGE IM (13:07)
--- NOTE | 2023-08-05 13:49 | ED.GENADUL1 ---
HPI HPI - General Adult General Stated complaint: CUT ON RIGHT HAND Time Seen by Provider: 08/05/23 12:14 Source: patient Mode of arrival: walk-in History of Present Illness HPI narrative: Patient is a 82-year-old male who is presenting with a skin tear superficial, 1.5x1cm dorsal aspect of his right hand, over the head of the second metacarpal. Patient is on Coumadin. Patient does not know his last tetanus shot was. Patient's been trying to hold pressure at home with no relief. Patient came into the Emergency Room secondary to the skin tears/avulsions and is not stopping bleeding. Patient was loading his lawnmower into his truck, patient had a accident where a piece of the chart accidentally abrasions the dorsal aspect of his right hand. No loss of function to the right hand. All systems are negative except as noted/marked. All systems reviewed and otherwise negative. Nurses note and vital signs reviewed and patient is not hypoxic. General: The patient appears well and in no apparent distress. Patient is resting comfortably on cart. Patient is not toxic, lethargic, or listless Skin: Warm, dry, no pallor noted. There is no rash noted. No petechiae, purpura. Patient has a 1.5?1 cm superficial skin tear that is a small area that has slow venous bleeding, not pulsatile, pressure is being applied with Telfa pad and patient. Significant other is at bedside. Head: Normocephalic, atraumatic Eye: Normal conjunctiva, no drainage, EOMI. PERRL Ears, Nose, Mouth, and Throat: oral mucosa is moist. Nares patent. Mouth without vesicles. Cardiovascular: Regular Rate and Rhythm, no murmur, gallop, rub Respiratory: Patient is in no distress, no accessory muscle use, lungs are clear to auscultation, no wheezing, rales or rhonchi Back: non-tender, GI: no tenderness to palpation, no masses appreciated. No rebound, guarding, or rigidity noted. No distention Musculoskeletal: Patient has full range of motion of all of the extremities, no motor, sensory, or focal neurological deficits. Patient has a superficial skin tears/avulsion. Patient has no limitation to the flexor extensor tendons of the right hand. Patient is right-hand dominant. No pulsatile bleeding. Superficial abrasion/skin tear, no deep structures involved. Neurological: A&O x4, normal speech Psychiatric: Cooperative Related Data Home Medications ?Medication ?Instructions ?Recorded ?Confirmed amiodarone 200 mg tablet 200 mg PO DAILY 08/05/23 08/05/23 spironolactone 25 mg tablet 25 mg PO Q12H 08/05/23 08/05/23 Allergies Allergy/AdvReac Type Severity Reaction Status Date / Time Yhikkhj-KHP-TdZ Reductase Allergy Mild Joint Pain Verified 08/05/23 12:00 Inhibitor Opioid HPI Opioid Management Most Recent Opioid Data: No Data to Display Exam Constitutional Vital Signs, click to edit/add: Last Vital Signs Temp 98.6 F 08/05/23 11:53 Pulse 60 08/05/23 14:00 Resp 14 08/05/23 14:00 BP 150/72 H 08/05/23 14:00 Pulse Ox 96 08/05/23 14:00 O2 Del Method Room Air 08/05/23 14:00 Course Vital Signs Vital signs: Vital Signs Temperature 98.6 F 08/05/23 11:53 Pulse Rate 60 08/05/23 11:53 Respiratory Rate 15 08/05/23 11:53 Blood Pressure 164/72 H 08/05/23 11:53 Pulse Oximetry 98 08/05/23 11:53 Oxygen Delivery Method Room Air 08/05/23 11:53 Temperature 98.6 F 08/05/23 11:53 Pulse Rate 60 08/05/23 14:00 Respiratory Rate 14 08/05/23 14:00 Blood Pressure 150/72 H 08/05/23 14:00 Pulse Oximetry 96 08/05/23 14:00 Oxygen Delivery Method Room Air 08/05/23 14:00 Medical Decision Making [facility] Narrative Medical decision making narrative: Patient initially had the wound clean, patient had Telfa and a pressure dressing applied by Howard applied by Dr. Moe. After 20 minutes, The dressing was removed, and there is still slow venous bleeding. A Surgicel, Telfa and pressure dressing were placed again at discharge. Patient had a tetanus update. Education on leaving dressing on, applying pressure. Wound with bleeding again, or return to the Emergency Room was discussed. Patient has no questions at discharge. Patient was educated on using topical anabolic ointment 3-4 times a day for the next 2 weeks to the area of the avulsion/skin tear so that it would heal well. No questions at discharge, patient understands this. Discharge Plan Discharge Stand Alone Forms: Portal Instructions Clinical Impression: Avulsion of skin of right hand Patient Disposition: Home, Self-Care Time of Disposition Decision: 13:48 Condition: Fair Prescriptions / Home Meds: No Action amiodarone 200 mg tablet 200 mg PO DAILY spironolactone 25 mg tablet 25 mg PO Q12H Print Language: Marshallese Instructions: Skin Avulsion (ED) Additional Instructions: Leave the dressing on that was applied at discharge for the next 2 hours. Slowly take the dressing off. Use topical antibiotic ointment 3-4 times a day to help wound healing and help prevent infection. Your tetanus has been updated. If any bleeding will recur, hold pressure for 20 minutes firmly, and if bleeding does not stop return back to the ER for evaluation. Referrals: AUSTEN MILNER [Primary Care Provider] - 1 week Discharge Date/Time: 08/05/23 14:02
[2023-08-05 14:00] VITALS: BP 150/72; PULSE 60; O2SAT 96
== END 2023-08-05 14:02 | disposition home or self-care (01) ==
PROVIDERS: Emergency Provider Emergency Medicine
DX: S61.401A Unspecified open wound of right hand, initial encounter (principal); Z23 Encounter for immunization; W22.8XXA Striking against or struck by other objects, initial encounter; Z79.899 Other long term (current) drug therapy; Z79.01 Long term (current) use of anticoagulants
CPT/HCPCS: 90471; 90715; 99283

== ENCOUNTER 2023-09-01 13:47 | Outpatient (OUT) | payer MEDICARE, SELFPAY ==
--- NOTE | 2023-09-01 14:01 | XR_ITS ---
The [address] [address] Patient Name: LEWIS WAHL MRN: [id number] date: 1940 Sex: M Assigned Patient Location: [facility] Current Patient Location: [facility] Accession/Order Number: [id number] Exam Date: 09/01/2023 14:05 Report Date: 09/04/2023 10:31 At the request of: SOPHIE WALLACE Procedure: XR chest 2V CHEST X-RAYS, 09/01/2023. HISTORY: Pacemaker displacement. COMPARISON: Chest x-rays, 03/22/2023. FINDINGS: 2 views of the chest obtained. There are postoperative changes from prior sternotomy. Cardiac pacemaker device is in stable position. The leads are stable and intact. No pleural effusion. Lungs clear. No pulmonary edema. No pneumothorax. XR/XR chest 2V IMPRESSION: 1. Pacemaker device is stable. The leads are in stable position. 2. Status post sternotomy. 3. Lungs are clear. No pneumothorax. No pleural effusion. Electronically authenticated by: DARVIN CAPELLAN Date: 09/04/2023 10:31
== END 2023-09-01 13:48 | disposition home or self-care (01) ==
LOC: RAD 13:49
PROVIDERS: PCP Family Medicine; Visit Provider Internal Medicine Cardiovascular Disease
DX: T82.128A Displacement of other cardiac electronic device, initial encounter (principal)
CPT/HCPCS: 71046

== ENCOUNTER 2023-12-08 13:39 | Outpatient (OUT) | payer MEDICARE, SELFPAY ==
--- NOTE | 2023-12-08 14:00 | CA_ITS ---
Patient Name: LEWIS WAHL MR#: [id number] : 1940 Exam Date: 12/08/2023 Ordering Doctor: YOEL MEDLEY CNP ECHOCARDIOGRAM REPORT PROCEDURE: CA ECHO DOPPLER COMPLETE INDICATIONS: Heart failure with reduced ejection fraction, CABGx4, cardiac stents, AICD COMPARISON: None. DESCRIPTION: COMPLETE ECHOCARDIOGRAM Real-time transthoracic echocardiography with 2D, M-mode, spectral and color flow Doppler performed. QUALITY: Technical quality was good. LEFT VENTRICLE: Normal chamber size. Normal left ventricular wall thickness. Mildly to moderately reduced systolic function. There is diffuse global hypokinesis. LV EF: Mildly to moderately reduced left ventricular ejection fraction, (40-45%). DIASTOLIC: Grade I diastolic dysfunction. ATRIAL SEPTUM: Visually appears intact. LEFT ATRIUM: Severe dilatation. RIGHT ATRIUM: Moderate dilatation. RIGHT VENTRICLE: Normal chamber size. Normal systolic function. Pacer wire present. TRICUSPID VALVE: Normal mobility and thickness. No stenosis with trivial regurgitation. No evidence of pulmonary hypertension. RVSP 26 mmHg MITRAL VALVE: Mildly thickened with normal mobility. No evidence of mitral valve stenosis. There is no mitral annular calcification. Mild mitral regurgitation. AORTIC VALVE: Normal trileaflet appearance. Thickened aortic valve. Mildly diminished mobility. No evidence of aortic valve stenosis. DVI 0.5, NICK 2.1 cm2. Trivial aortic regurgitation. AORTIC ROOT: Normal diameter and appearance. PULMONIC VALVE: Normal thickness and mobility. No stenosis. Mild regurgitation. PERICARDIUM: No evidence of pericardial effusion. IVC: Collapses with inspirations. IVC is normal in size. PLEURA: CONCLUSION: 1. The left ventricle is normal in size and exhibits global hypokinesis and mildly to moderately reduced systolic function. LVEF is estimated at 40 to 45%. 2. Normal right ventricular size and systolic function. 3. Moderate severe biatrial dilatation. 4. Mild mitral regurgitation. 5. Normal right-sided pressures. Adult Echocardiography Procedure Report Left Ventricle LVEDD (3.7 - 5.6 cm): 5.36 cm LVESD (2.2 - 4.0 cm): 4.21 cm LVIVS thickness (0.6 - 1.2 cm): 1.14 cm LVPW thickness (0.5 - 1.0 cm): 0.98 cm e': 0.14 m/s E - e': 3.87 LVOT Max Gradient: 1.98 mm[Hg] LVOT Area (cm2): 0.70 m/s Peak Velocity (LVOT): 0.70 m/s Mean Velocity (LVOT): 0.48 m/s LVOT Diameter 2.10 cm Left Atrium LA Volume Index (2D A2C): 48.66 ml/m2 Left Atrium Systolic Dimension: 5.07 cm Mitral Valve MV E to A Ratio: 0.67 Mitral Valve A-Wave Peak Velocity: 0.83 m/s Mitral Valve E-Wave Peak Velocity: 0.55 m/s Right Ventricle Aorta AO Root Diam: 3.81 cm Aortic Valve AoV Area (Peak Lee): 1.76 cm2, 1.76 cm2 AoV Area (VTI): 2.10 cm2, 2.10 cm2 Peak Velocity(Antegrade Flow): 1.38 m/s Peak Gradient(Antegrade Flow): 7.61 mm[Hg] Mean Velocity(Antegrade Flow): 0.92 m/s Mean Gradient(Antegrade Flow): 3.92 mm[Hg] Velocity Time Integral: 33.47 cm Tricuspid Valve Peak Velocity (Regurgitant Flow): 2.38 m/s Pulmonic Valve Mean Gradient: 1.49 mm[Hg] Mean Velocity: 0.57 m/s Peak Velocity: 0.88 m/s, 0.84 m/s Peak Gradient: 2.85 mm[Hg], 3.09 mm[Hg] Right Atrium Right Atrium Systolic Pressure: 76.63 ml, 76.63 ml Dictated by: Nickolas Rizzo M.D. on 12/08/2023 at 17:47 Approved by: Nickolas Rizzo M.D. on 12/08/2023 at 17:50
== END 2023-12-08 13:40 | disposition home or self-care (01) ==
LOC: CARD 13:39
PROVIDERS: PCP Family Medicine; Visit Provider Nurse Practitioner Family
DX: I50.22 Chronic systolic (congestive) heart failure (principal)
CPT/HCPCS: 93306; 93356

== ENCOUNTER 2024-12-11 11:11 | Emergency (ER) | payer MEDICARE, SELFPAY ==
[2024-12-11] VITALS (18 sets, daily range): BP systolic 142–163; BP diastolic 56–75; PULSE 59–63; TEMP 36.7; O2SAT 91–98; BMI 31.3
--- NOTE | 2024-12-11 11:56 | ECG_ITS ---
The [facility] Test Date: 2024-12-11 Pat Name: LEWIS WAHL Department: Room: - Gender: Male Entry Level Accountant: : 1940 Requested By: [id number] Order Number: [id number] Reading MD: LACI ALATORRE Measurements Intervals [place] Rate: 60 P: -22 MO: 232 QRS: 51 QRSD: 172 T: 85 QT: 492 QTc: 492 Interpretive Statements [id number] Electronic ventricular pacemaker 9120 atypical ECG Compared to ECG 03/30/2017 05:30:11 Electronic ventricular paced rhythm now present Electronically Signed On 12-11-2024 14:00:55 EDT by LACI ALATORRE
--- NOTE | 2024-12-11 11:57 | XR_ITS ---
The [address] [address] Patient Name: LEWIS WAHL MRN: [id number] date: 1940 Sex: M Assigned Patient Location: ER Current Patient Location: ER Accession/Order Number: [id number] Exam Date: 12/11/2024 12:20 Report Date: 12/11/2024 13:14 At the request of: BASILIA POOLE DO Procedure: XR chest 2V Chest 2 views CLINICAL HISTORY: cough COMPARISON: Chest 09/01/2023 FINDINGS: Sternotomy wires and pacemaker device are in place. Heart is normal in size. No consolidation pneumothorax pleural effusion or free air. XR/XR chest 2V IMPRESSION: NO ACUTE CARDIOPULMONARY ABNORMALITY. Impression dictated by: Bret Greenfield Jr., D.O. 12/11/2024 1:14 PM Dictation Location: [place] [address] Electronically authenticated by: [id number] Y Date: 12/11/2024 13:14
[2024-12-11 12:22] LABS: Hematocrit 40.8 % (42.0-54.0); Hemoglobin 13.7 g/dL (14.0-18.0); Immature Granulocytes Abs Auto 0.01 10^3/uL (0.00-0.03); Immature Granulocytes Pct Auto 0.1 % (0.0-0.5); Lymphocytes Absolute Auto 0.9 10^3/uL (1.2-3.8); Mean Corpuscular HGB Conc 33.6 g/dL (29.9-35.2); Mean Corpuscular Hemoglobin 32.7 pg (25.9-34.0); Mean Corpuscular Volume 97.4 fL (80.0-94.0); Platelet Count 161 10^3/uL (150-450); Red Blood Count 4.19 10^6/uL (4.70-6.10); White Blood Count 6.8 10^3/uL (4.0-11.0)
[2024-12-11 12:38] LABS: Alanine Aminotransferase 25 U/L (16-63); Albumin Globulin Ratio 0.9; Albumin Level 3.3 g/dL (3.4-5.0); Alkaline Phosphatase 88 U/L (46-116); Anion Gap 11.3; Aspartate Amino Transferase 24 U/L (15-37); Blood Urea Nitrogen 29.0 mg/dL (7.0-18.0); Calcium 8.8 mg/dL (8.5-10.1); Carbon Dioxide 26.4 mmol/L (21.0-32.0); Chloride 104 mmol/L (98-107); Estimated GFR (African America 46 (>=60 mL/min/1.73m^2); Estimated GFR (Non-African Ame 38 (>=60 mL/min/1.73m^2); Globulin 3.7 g/dL; Glucose 149 mg/dL (74-106); Potassium 4.7 mmol/L (3.5-5.1); Sodium 137 mmol/L (136-145); Total Protein 7.0 g/dL (6.4-8.2)
[2024-12-11 12:50] LABS: Magnesium 2.3 mg/dL (1.8-2.4)
[2024-12-11 12:53] LABS: NT Pro B Type Natriuretic Pept 251.0 pg/mL (<=1800.0)
[2024-12-11 13:51] LABS: Glucose Urine UA >=1000 mg/dL (NEGATIVE)
[2024-12-11 13:59] LABS: Cast Seen? NONE SEEN #/LPF (NONE SEEN); Crystals Seen? None Seen #/HPF (None Seen); Urine Culture Indicated NO
--- NOTE | 2024-12-11 14:18 | ED.GENADUL1 ---
HPI HPI - General Adult General Chief complaint: Weakness Stated complaint: WEAKNESS CHILLS Time Seen by Provider: 12/11/24 11:37 Source: patient Mode of arrival: walk-in Limitations: no limitations History of Present Illness HPI narrative: Patient is an 84-year-old male presenting to the emergency department for evaluation of generalized weakness. Patient states over the last week or so he has been experiencing intermittent episodes of generalized weakness. He states that maybe once or twice a day he will experience generalized weakness. He states that he feels like his legs quite wanted give out on him. He states that sometimes he feels lightheaded. He denies any associated chest pain or shortness of breath when this occurs. He denies any associated nausea, vomiting, or sweating when this occurs. He has no fevers or infectious-like symptoms. He has no abdominal pain, nausea, or vomiting. States he has a history of a CABG back in 1998, and is currently on Eliquis. Denies history of heart failure, leg swelling, or DVT PE. He denies black/tarry/melanotic/bloody stools. His last bowel movement was yesterday and was normal. He still eating and drinking normally. Related Data Home Medications ?Medication ?Instructions ?Recorded ?Confirmed amiodarone 200 mg tablet 200 mg PO DAILY 08/05/23 08/05/23 spironolactone 25 mg tablet 25 mg PO Q12H 08/05/23 08/05/23 Allergies Allergy/AdvReac Type Severity Reaction Status Date / Time Cljuqkc-CID-YlH Reductase Allergy Mild Joint Pain Verified 08/05/23 12:00 Inhibitor Review of Systems ROS Status of ROS 10 or more systems reviewed and unremarkable except as noted in history and below PFSH PFSH Social History Little interest or pleasure in doing things: not at all Feeling down, depressed, or hopeless: not at all Exam Narrative Exam Narrative: CONSTITUTIONAL: Well-appearing, answering questions and following commands appropriately SKIN: Was warm and dry. EYES: No scleral icterus or conjunctival pallor EARS, NOSE, THROAT: Neck was supple. There was no jugular venous distention. RESPIRATORY: Clear to auscultation bilaterally, no wheezes, crackles, or stridor, no use of accessory muscles CARDIOVASCULAR: Normal rate and regular rhythm. There is no S3, S4, murmur, rub. Radial pulses are 2+ and symmetrical. GASTROINTESTINAL: Abdomen was soft, non-tender, and non-distended. There is no guarding or rebound tenderness MUSCULOSKELETAL: There was no lower extremity edema, erythema, or tenderness. NEUROLOGIC: Patient is awake and alert. Equal strength in all extremities. Sensation tact light touch in all 4 extremities. Ambulates with a steady gait without ataxia. Finger-nose intact. No dysarthria, speaking with a normal speech. Shoulder shrug equal bilaterally. Sensation intact to light touch in the V1/V2/V3 distribution of the face. EOMI. PERRLA. Facies were symmetrical. Constitutional Vital Signs, click to edit/add: Last Vital Signs Temp 98.1 F 12/11/24 11:33 Pulse 60 12/11/24 13:30 Resp 27 H 12/11/24 13:30 BP 147/56 H 12/11/24 13:01 Pulse Ox 95 12/11/24 13:30 O2 Del Method Room Air 12/11/24 11:49 Course Vital Signs Vital signs: Vital Signs Temperature 98.1 F 12/11/24 11:33 Pulse Rate 61 12/11/24 11:33 Respiratory Rate 18 12/11/24 11:33 Blood Pressure 142/67 H 12/11/24 11:33 Pulse Oximetry 93 L 12/11/24 11:33 Oxygen Delivery Method Room Air 12/11/24 11:33 Temperature 98.1 F 12/11/24 11:33 Pulse Rate 60 12/11/24 13:30 Respiratory Rate 27 H 12/11/24 13:30 Blood Pressure 147/56 H 12/11/24 13:01 Pulse Oximetry 95 12/11/24 13:30 Oxygen Delivery Method Room Air 12/11/24 11:49 Medical Decision Making [facility] Narrative Medical decision making narrative: Patient is a 84-year-old male presenting to the emergency department for approximately 1 week history of generalized weakness that is intermittent throughout the day. Vital signs on arrival are significant for tachypnea, however this resolved by my evaluation. He is in no respiratory distress, saturating 95% on room air. He is afebrile and hemodynamically stable. Patient has a normal physical examination. Differential diagnosis for generalized weakness in an elderly male includes, but is not limited to, ACS, arrhythmia, symptomatic anemia, UTI, pneumonia, heart failure, or other electrolyte/metabolic derangement. IV was established and laboratory studies were obtained. Chest x-ray independently reviewed/interpreted by myself demonstrated no acute cardiopulmonary process. 12 Lead EKG: Ventricularly paced rhythm at a rate of [address] segment elevations. Prolonged QRS duration is consistent with a ventricularly paced rhythm. Final impression: Ventricular paced rhythm at a normal rate without evidence of pacemaker malfunction or myocardial ischemia. Laboratory studies were unremarkable. He has a mild acute kidney injury, may be secondary dehydration. There were no associated electrolyte or metabolic derangements. He is mildly anemic compared to his baseline. No leukocytosis or thrombocytopenia. No transaminitis or hyperbilirubinemia. Troponin and BNP not elevated. Urinalysis normal. On reevaluation, patient states he feels well and is asymptomatic. He was able to ambulate to the bathroom without symptoms or gait disturbances. Though he has a mild SAMRA, there are no associated electrolyte derangements and not significant enough at this point to require admission. I do believe the patient stable for discharge. 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 Return precautions were given including any new or concerning symptoms. Patient understands and agrees to the plan. FINAL IMPRESSION: #Acute generalized weakness #Acute mild acute kidney injury DISPOSITION: Discharged home CONDITION: Fair Medical Records Medical records reviewed: Yes I reviewed the patient's medical records Lab Data Lab results reviewed: Yes I reviewed the patient's lab results Labs: Lab Results 12/11/24 12/11/24 Range/Units 12:12 13:36 WBC 6.8 (4.0-11.0) 10^3/uL RBC 4.19 L (4.70-6.10) 10^6/uL Hgb 13.7 L (14.0-18.0) g/dL Hct 40.8 L (42.0-54.0) % MCV 97.4 H (80.0-94.0) fL MCH 32.7 (25.9-34.0) pg MCHC 33.6 (29.9-35.2) g/dL RDW 13.1 (11.0-15.0) % Plt Count 161 (150-450) 10^3/uL MPV 10.2 (9.5-13.5) fL Neut % (Auto) 72.7 (43.0-75.0) % Lymph % (Auto) 12.6 L (20.5-60.0) % [place] % (Auto) 12.6 H (1.7-12.0) % Eos % (Auto) 1.9 (0.9-7.0) % Baso % (Auto) 0.1 L (0.2-2.0) % Neut # (Auto) 5.0 (1.4-6.5) 10^3/uL Lymph # (Auto) 0.9 L (1.2-3.8) 10^3/uL [place] # (Auto) 0.9 H (0.3-0.8) 10^3/uL Eos # (Auto) 0.1 (0.0-0.7) 10^3/uL Baso # (Auto) 0.0 (0.0-0.1) 10^3/uL Abs Immat Gran (auto) 0.01 (0.00-0.03) 10^3/uL Imm/Tot Granulo (auto) 0.1 (0.0-0.5) % Sodium 137 (136-145) mmol/L Potassium 4.7 (3.5-5.1) mmol/L Chloride 104 (98-107) mmol/L Carbon Dioxide 26.4 (21.0-32.0) mmol/L Anion Gap 11.3 BUN 29.0 H (7.0-18.0) mg/dL Creatinine 1.73 H (0.70-1.30) mg/dL Est GFR ( Amer) 46 L (>=60 mL/min/1.73m^2) Est GFR (Non-Af Amer) 38 L (>=60 mL/min/1.73m^2) BUN/Creatinine Ratio 16.8 Glucose 149 H (74-106) mg/dL Calcium 8.8 (8.5-10.1) mg/dL Magnesium 2.3 (1.8-2.4) mg/dL Total Bilirubin 0.7 (0.2-1.0) mg/dL AST 24 (15-37) U/L ALT 25 (16-63) U/L Alkaline Phosphatase 88 (46-116) U/L Troponin I High Sens 10.0 (4.0-76.1) pg/mL NT-Pro-B Natriuret Pep 251.0 (<=1800.0) pg/mL Total Protein 7.0 (6.4-8.2) g/dL Albumin 3.3 L (3.4-5.0) g/dL Globulin 3.7 g/dL Albumin/Globulin Ratio 0.9 Urine Color Lt. yellow (YELLOW) Urine Clarity Clear (CLEAR) Urine pH 7.0 (5.0-9.0) Ur Specific [place] 1.010 (1.005-1.025) Urine Protein Negative (NEG/TRACE) mg/dL Urine Glucose (UA) >=1000 A (NEGATIVE) mg/dL Urine Ketones Negative (NEGATIVE) mg/dL Urine Occult Blood Negative (NEGATIVE) Urine Nitrite Negative (NEGATIVE) Urine Bilirubin Negative (NEGATIVE) Urine Urobilinogen 0.2 (0.2-1.0) EU/dL Ur Leukocyte Esterase Negative (NEGATIVE) Urine RBC None seen (0-2) #/HPF Urine WBC None seen (NONE SEEN) #/HPF Ur Squamous Epith Cells Rare (NONE/RARE) #/LPF Urine Crystals None seen (None Seen) #/HPF Urine Bacteria None seen (NONE SEEN) #/HPF Urine Casts None seen (NONE SEEN) #/LPF Urine Mucus None seen (NONE SEEN) Ur Culture Indicated? No Imaging Data Chest x-ray: Attestation: I personally reviewed and interpreted this imaging study as follows: Radiologist's impression: ITS Impressions Chest X-Ray 12/11/24 11:57 IMPRESSION: NO ACUTE CARDIOPULMONARY ABNORMALITY. Impression dictated by: Bret Greenfield Jr., D.O. 12/11/2024 1:14 PM Dictation Location: [place] [address] Electronically authenticated by: [id number] Y Date: 12/11/2024 13:14 ECG Data Attestation: I personally reviewed and interpreted this ECG as follows: Discharge Plan Discharge Chief Complaint: Weakness Clinical Impression: Episode of generalized weakness, SAMRA (acute kidney injury) Patient Disposition: Home, Self-Care Time of Disposition Decision: 14:04 Condition: Good Mode of Transportation: Private Vehicle Prescriptions / Home Meds: No Action amiodarone 200 mg tablet 200 mg PO DAILY spironolactone 25 mg tablet 25 mg PO Q12H Print Language: Andorran Instructions: Weakness (ED) Referrals: AUSTEN MILNER [Primary Care Provider, Family Practice] - 1 week Discharge Date/Time: 12/11/24 14:13
--- OUTSIDE RECORDS SUMMARY | 2024-12-11 15:22 | XMS_ITS | CCD ---
Author Organization [facility] Care Team Providers Care Hospice Aide Name Role Phone Denisse Diaz Attending Unavailable Florentino Panda MD Unavailable Unavailable Lydia Milner Unavailable Unavailable Florentino Panda Unavailable Unavailable ELTAHAWY, ALE Mora Attending Unavailable ELTAHAWYALE Admitting Unavailable [facility] Referring Unavailable [facility] Primary Care Unavailable ELTAHAWY, DR AGUERO Admitting [...] Care Unavaila ble GRAEME BECKHAM Attending Unavailable GRAEME BECKHAM Consulting Unavailable GRAEME BECKHAM Admitting Unavailable REQUEST, DR HAGEN LISTED Primary Care Unavaila ble CELY, DR TEVIN Fuchs Attending Unavailabl e CELY, DR TEVIN Fuchs Consulting Unavailabl e CELY, DR TEVIN Fuchs Admitting Unavailabl e REQUEST, DR HAGEN LISTED Primary Care Unavaila TYRESE Rico Referring Unavailable RODRIGOTYRESE Rivas Referring Unavailable KIN DEL RIO Attending Unavailable TYRESE BURDEN Referring Unavailable YOEL NEAL Attending Unavailable TYRESE BURDEN Referring Unavailable TRANGDEMETRIO Referring Unavailable TYRESE BURDEN Referring Unavailable Allergies Allergy Classification Reported Allergen(s) Allergy Type Date of Onset Reaction(s) Facility HMG-CoA Reductase Inhibitors (statins) (1 source) atorvastatin Drug Allergy Myalgia [facility] Work Phone: (2 sources) atorvastatin; Translations: [ATORVASTATIN] Drug Allergy 7 [facility] Repository (2 sources) Dextroamphetamine Drug Allergy 6 [facility] Rep[facility] Medications Current Medications Medication Drug Class(es) Dates Sig (Normalized) Sig (Original) amiodarone hydrochloride 200 mg oral tablet (1 source) Antiarrhythmic Start: 10-10-2023 take 200 mg by mouth once daily Amiodarone Active 200 MG PO Daily October 10, 2023 12:00am apixaban 5 mg oral tablet (1 source) Factor Xa Inhibitor Start: 10-10-2023 take 1 tablet by mouth twice daily Apixaban (Eliquis) 5 mg tablet Active 5 MG PO Twice daily October 10, 2023 12:00am carvedilol 25 mg oral tablet (2 sources) alpha-Adrenergic Drew, beta-Adrenergic Drew Start: 10-10-2023 take 25 mg by mouth twice daily at mealtime Carvedilol Active 25 MG PO Twice daily October 10, 2023 12:00am must administer with a meal/food Carvedilol 25 MG Oral Tablet Refills: 0 Active cholecalciferol 0.025 mg oral capsule (1 source) Vitamin D Start: 10-10-2023 take 25 ug by mouth once daily Cholecalciferol (Vitamin D3) Active 25 MCG PO Daily October 10, 2023 12:00am clopidogrel 75 mg oral tablet (2 sources) P2Y12 Platelet Inhibitor Start: 10-10-2023 take 75 mg by mouth once daily Clopidogrel Active 75 MG PO Daily October 10, 2023 12:00am Clopidogrel Bisu lfate 75 MG Oral Tablet Refills: 0 Active empagliflozin 25 mg oral tablet (1 source) Sodium-Glucose Cotransporter 2 Inhibitor Start: 10-10-2023 take 12.5 mg by mouth once daily Empagliflozin Active 12.5 MG PO Daily October 10, 2023 12:00am 24 hr isosorbide mononitrate 60 mg extended release oral tablet (2 sources) Nitrate Vasodilator Start: 10-10-2023 take 60 mg by mouth once daily Isosorbide Mononitrate Active 60 MG PO Daily October 10, 2023 12:00am take 1 tablet by th every twenty-four hours Isosorbide Mononitrate ER 60 MG Oral Tablet Extended Release 24 Hour Refills: 0 Active lisinopril 40 mg oral tablet (2 sources) Angiotensin Converting Enzyme Inhibitor Start: 10-10-2023 take 40 mg by mouth once daily Lisinopril Active 40 MG PO Daily October 10, 2023 12:00am Lisinopril 20 MG Oral Tablet Refills: 0 Active metFORMIN hydrochloride 1000 mg oral tablet (2 sources) Biguanide Start: 10-10-2023 take 1000 mg by mouth twice daily Metformin Active 1000 MG PO Twice daily October 10, 2023 12:00am metFORMIN HCl - 500 MG Oral Tablet Refills: 0 Active nitroglycerin 0.4 mg sublingual tablet (1 source) Nitrate Vasodilator Start: 10-10-2023 Nitroglycerin Active 0.4 MG SUBLINGUAL every 5 to 15 minutes October 10, 2023 12:00am do not exceed 3 doses per episode rosuvastatin calcium 40 mg oral tablet (2 sources) HMG-CoA Reductase Inhibitor Start: 10-10-2023 take 40 mg by mouth once daily Rosuvastatin Active 40 MG PO Daily October 10, 2023 12:00am Rosuvastatin Zhang cium 40 MG Oral Tablet Refills: 0 Active spironolactone 25 mg oral tablet (1 source) Aldosterone Antagonist Start: 10-10-2023 take 12.5 mg by mouth once daily Spironolactone Active 12.5 MG PO Daily October 10, 2023 12:00am Completed/Discontinued Medications Medication Drug Class(es) Dates Sig (Normalized) Sig (Original) aspirin 81 mg oral tablet (1 source) Platelet Aggregation Inhibitor, Nonsteroidal Anti-inflammatory Drug Aspirin Low Dose 81 MG TABS Refills: 0 Active gentamicin 1 mg/ml topical cream (1 source) Start: 09-27-2018 Gentamicin Sulfate 0.1 % External Cream APPLY SPARINGLY TO AFFECTED AREA(S) ONCE DAILY Quantity: 1 Refills: 1 Florentino Panda MD Start : 27-Sep-2018 Active 30 GM Tube Problems Active Problems Problem Classification Problem Date Documented Date Episodic/Chronic Calculus of urinary tract (1 source) History of calculus of kidney; Translations: [Personal history of urinary calculi] Episodic Complication of device; implant or graft (2 sources) Atherosclerosis of coronary artery bypass graft(s) without angina pectoris; Translations: [Atherosclerosis of coronary artery bypass graft(s) without angina pectoris] Onset: 06-13-2022 Chronic Conduction disorders (4 sources) Presence of automatic (implantable) cardiac defibrillator; Translations: [Encounter for adjustment and management of automatic implantable cardiac defibrillator] Onset: 06-04-2024 Chronic Congestive heart failure; nonhypertensive (2 sources) Chronic systolic (congestive) heart failure; Translations: [Chronic systolic (congestive) heart failure] Onset: 09-15-2022 Chronic Coronary atherosclerosis and other heart disease [...] termite treater (current) drug therapy; Translations: [OTH CORRECTION CURRENT DRUG THERAPY] Onset: 07-04-2022 Episodic Other aftercare (1 source) terminal superintendent (current) use of oral hypoglycemic drugs; Translations: [CORRECTION USE ORAL HYPOGLYCEMIC DX] Onset: 07-04-2022 Episodic Other aftercare (1 source) prison (current) use of antithrombotics/antip latelets; Translations: [WAFER POLISHER ANTITHROMBOT/ANTIPLAT LETS] Onset: 07-04-2022 Episodic Other aftercare (1 source) terminal superintendent (current) use of anticoagulants; Translations: [CORRECTION CURRNT USE ANTICOAGULANTS] Onset: 07-04-2022 Episodic Other aftercare (1 source) prison (current) use of aspirin; Translations: [WAFER POLISHER CURRENT USE OF ASPIRIN] Onset: 05-30-2022 Episodic Other upper respiratory disease (1 source) Lesion of nose; Translations: [Other disease of nasal cavity and sinuses] Episodic Other upper respiratory disease (4 sources) Epistaxis; Translations: [EPISTAXIS] Onset: 06-30-2022 Episodic Katerina-; endo-; and myocarditis; cardiomyopathy (except that caused by tuberculosis or sexually transmitted disease) (4 sources) Dilated cardiomyopathy; Translations: [DILATED CARDIOMYOPATHY] Onset: [...] Translations: [Longstanding persistent atrial fibrillation] Onset: 03-22-2023 Past or Other Problems Problem Classification Problem Date Documented Da te Episodic/Chronic NEGATED: Highlighted row has not occurred!Residual codes; unclassified (1 source) Disease Episodic Results Test Name Value Interpretation Reference Range Facility Orders Onlyon 10-28-2024 Orders Only [id number] Raz Wahl A 1940 M Date Provider Department Center 10/28/2024 TYRESE CHRISTY [facility] CARD [facility] Family History Problem Relation Age of Onset Coronary artery disease Father Family Status - Relation Status Age at Mother Father Normal [facility] 36on 10-24-2024 36 Medication update Amiodarone HCL 200mg 1 tab daily Empagliflozine 25mg 1/2 tab daily Rouvastatin 40mg 1 tab HS Apixaban 5mg 1/2 tab daily Cholecal 25mg 2 tabs every am Isosorbide 60mg 1 tab daily Lisinopril 40mg 1 tab daily Carvedilol 25mg 1 tab 2 times daily Clopidogrel 75mg daily Normal [facility] Office Visiton 10-21-2024 Follow-up visit [id number] Raz Wahl A 1940 M Date Provider Department Center 10/21/2024 [id number], ADAM CARD [facility] Family History Problem Relation Age of Onset Coronary artery disease Father Family Status - Relation Status Age at Mother Father Level of Service:52579 SC OFFICE/OUTPATIENT ESTABLISHED MOD MDM 30 MIN [facility] 36on 12-15-2023 36 Reguarding heart function From: Yoel Neal NP Sent: 12/14/2023 5:42 PM EDT To: Evette Mckeon MA Subject: RE: Scan Please let him know his heart function is looking better, at 40-45%. Continue same medications and follow-up as planned. Thanks! Left message for patient to return my call. Normal [facility] Telephoneon 12-15-2023 Telephone [id number] PankajRaz er A 1940 M Date Provider Department Center 12/15/2023 [id number] Family History Problem Relation Age of Onset Coronary artery disease Father Family Status - Relation Status Age at Father [facility] Office Visiton 11-22-2023 Follow-up visit [id number] Emmanuel Wahlt er A 1940 M Date Provider Department Center 11/22/2023 Juwan-YOEL NEAL Family History Problem Relation Age of Onset Coronary artery disease Father Family Status - Relation Status Age at Father Level of Service:76640 SC OFFICE/OUTPATIENT ESTABLISHED MOD MDM 30 MIN Reason for Visit and Comments: Atrial Fibrillation [80] Congestive Heart Failure [127] Coronary Artery Disease [187] [facility] CBC AUTO DIFFon 06-30-2022 BASO # 0.0 103/ul Normal 0.0-0.1 [facility] Comment on above: Performed By: #### C BC #### [facility] Laboratory [address] [place] [address] Dr. Marilyn Wahl Basophils/100 WBC (Bld) 0.2 % Normal 0.2-2.0 [facility] Comment on above: Performed By: #### C BC #### [facility] [address] [place] [address] Dr. Marilyn Wahl EO # 0.1 103/ul Normal 0.0-0.7 [facility] Comment on above: Performed By: #### C BC #### [facility] [address] [place] [address] Dr. Marilyn Wahl Eosinophils/100 WBC (Bld) 2.0 % Normal 0.9-7.0 [facility] Comment on above: Performed By: #### C BC #### [facility] [address] [place] [address] Dr. Marilyn Wahl Erythrocyte distribution width (RBC) [Ratio] 13.3 % Normal 11.0-15.0 [facility] Comment on above: Performed By: #### C BC #### [facility] [address] [place] [address] Dr. Marilyn Wahl Hematocrit (Bld) [Volume fraction] 42.9 % Normal 42.0-54.0 [facility] Comment on above: Performed By: #### C BC #### [facility] [address] [place] [address] Dr. Marilyn Wahl Hemoglobin (Bld) [Mass/Vol] 14.6 g/dL Normal 14.0-18.0 [facility] Comment on above: Performed By: #### C BC #### [facility] [address] [place] [address] Dr. Marilyn Wahl IG # 0.01 10e3/ul Normal 0.00-0.03 [facility] Comment on above: Performed By: #### C BC #### [facility] [address] [place] [address] Dr. Marilyn Wahl IG % 0.2 % Normal 0.0-0.5 [facility] Comment on above: Performed By: #### C BC #### [facility] [address] [place] [address] Dr. Marilyn Wahl LYMPH # 1.0 103/ul Critically low 1.2-3.8 [facility] Comment on above: Performed By: #### C BC #### [facility] [address] [place] [address] Dr. Marilyn Wahl Lymphocytes/100 WBC (Bld) 15.2 % Critically low 20.5-60.0 [facility] Comment on above: Performed By: #### C BC #### [facility] [address] [place] [address] Dr. Marilyn Wahl MANUAL DIFF REQ NO Normal [facility] Comment on above: Performed By: #### C BC #### [facility] [address] [place] [address] Dr. Marilyn Wahl MCH (RBC) [Entitic mass] 32.1 pg Normal 25.9-34.0 [facility] Comment on above: Performed By: #### C BC #### [facility] [address] [place] [address] Dr. Marilyn Wahl MCHC (RBC) [Mass/Vol] 34.0 g/dL Normal 29.9-35.2 [facility] Comment on above: Performed By: #### C BC #### [facility] [address] [place] [address] Dr. Marilyn Wahl MCV (RBC) [Entitic vol] 94.3 fL Critically high 80.0-94.0 [facility] Comment on above: Performed By: #### C BC #### [facility] [address] [place] [address] Dr. Marilyn Wahl MONO # 0.6 103/ul Normal 0.3-0.8 [facility] Comment on above: Performed By: #### C BC #### [facility] [address] [place] [address] Dr. Marilyn Wahl Monocytes/100 WBC (Bld) 9.9 % Normal 1.7-12.0 [facility] Comment on above: Performed By: #### C BC #### [facility] [address] [place] [address] Dr. Marilyn Wahl NEUT # 4.7 103/ul Normal 1.4-6.5 [facility] Comment on above: Performed By: #### C BC #### [facility] [address] [place] [address] Dr. Marilyn Wahl Neutrophils/100 WBC (Bld) 72.5 % Normal 43.0-75.0 [facility] Comment on above: Performed By: #### C BC #### [facility] [address] [place] [address] Dr. Marilyn Wahl Platelet mean volume (Bld) [Entitic vol] 10.0 fL Normal 9.5-13.5 [facility] Comment on above: Performed By: #### C BC #### [facility] [address] [place] [address] Dr. Marilyn Wahl PLT 178 103/ul Normal 150-450 [facility] Comment on above: Performed By: #### C BC #### [facility] [address] [place] [address] Dr. Marilyn Wahl RBC 4.55 106/ul Critically low 4.70-6.10 [facility] Comment on above: Performed By: #### C BC #### [facility] [address] [place] [address] Dr. Marilyn Wahl WBC 6.4 103/ul Normal 4.0-11.0 [facility] Comment on above: Performed By: #### C BC #### [facility] [address] [place] [address] Dr. Marilyn Wahl PROF CHEM 8 (BAS METB)on Anion gap [Moles/Vol] 11.3 mmol/L Normal [facility] Comment on above: Performed By: #### B MP #### [facility] [address] [place] [address] Dr. Marilyn Wahl Calcium [Mass/Vol] 8.7 mg/dL Normal 8.5-10.1 [facility] Comment on above: Performed By: #### B MP #### [facility] [address] [place] [address] Dr. Marilyn Wahl Chloride [Moles/Vol] 106 mmol/L Normal 98-107 [facility] Comment on above: Performed By: #### B MP #### [facility] [address] [place] [address] Dr. Marilyn Wahl CO2 [Moles/Vol] 26.1 mmol/L Normal 21.0-32.0 [facility] Comment on above: Performed By: #### B MP #### [facility] [address] [place] [address] Dr. Marilyn Wahl Creatinine [Mass/Vol] 1.02 mg/dL Normal 0.70-1.30 [facility] Comment on above: Performed By: #### B MP #### [facility] [address] [address] [address] Marilyn Wahl EGFR-AF MAURITIAN >60 Normal >=60 [facility] Comment on above: Performed By: #### B MP #### [facility] [address] [address] [address] Marilyn Wahl EGFR-NON AF MAURITIAN >60 Normal >=60 [facility] Comment on above: Performed By: #### B MP #### [facility] [address] [address] [address] Marilyn Wahl Glucose [Mass/Vol] 156 mg/dL Critically high 74-106 [facility] Comment on above: Performed By: #### B MP #### [facility] [address] [address] [address] Marilyn Wahl Potassium [Moles/Vol] 4.4 mmol/L Normal 3.5-5.1 [facility] Comment on above: Performed By: #### B MP #### [facility] [address] [address] [address] Marilyn Wahl Sodium [Moles/Vol] 139 mmol/L Normal 136-145 [facility] Comment on above: Performed By: #### B MP #### [facility] [address] [address] [address] Marilyn Wahl Urea nitrogen [Mass/Vol] 21.0 mg/dL Critically high 7.0-18.0 [facility] Comment on above: Performed By: #### B MP #### [facility] [address] [address] [address] Marilyn Wahl Urea nitrogen/Creatinine [Mass ratio] 20.6 mg/mg Normal [facility] Comment on above: Performed By: #### B MP #### [facility] [address] [address] [address] Marilyn Wahl CULTURE ABSCESSon 05-27-2022 CULTURE ABSCESS Culture Observations : ANAEROBE PRESENT. Isolate 1 Finegoldia magna Moderate growth of Normal [facility] Comment on above: Performed By: #### A BCESCX #### [facility] [address] [address] [address] Marilyn Wahl ECHOCARDIO M/2D COMPLETEon 0 09-23-2021 ECHOCARDIO M/2D COMPLETE Patient: LEWIS WAHL Exam Date: 09/23/2021 : 1940 Gender:M Ordering : DR ALE SANTOS M.D. Admission #: [id number] Family : JOSEP MILNER . Order #: [id number] CLICK HERE TO VIEW EXAM ECHOCARDIOGRAM REPORT [...] Area(A2C): 27.10 cm2 Left Atrium Systolic Volume(A2C): 77743 mm3 Mitral Valve Mitral Valve E-Wave Peak [...] Rizzo M.D. on 2021 at 19:13 Normal [facility] Cardiovascular Lab Reporton 05-20-2021 Cardiovascular Lab Report [facility]: [id number] Physician: Alistair Flaherty MD Medicine Service Date: 05/20/2021 Division of Birthdate: 1940 Cardiology Room #: [facility] Cardiovascular Services [place] [address] Cardiovascular Laboratory Report PROCEDURE PERFORMED: Transesophageal echocardiogram. INDICATION: Atrial fibrillation with RVR. FELLOW DOCTOR: Nikki Gagnon MD. PROCEDURE IN DETAIL: An informed consent was obtained from the patient after explaining indication, risks, and benefits, and alternatives. The patient understood and signed and agreed the consent form. The patient was brought to the laboratory technical specialist and TANYA, transesophageal echocardiogram, was performed under [...] Gagnon MD Date Trans: 05/20/2021 01:45 P/misael [id number] Normal [facility] Cardiovascular Lab Report [facility] Patient Name: Pankaj [facility] MR #: [id number] Department of Physician: Scott Guevara M.D. Division of Service Date: 05/20/2021 Cardiology Birthdate: 1940 Adult Cardiovascular Room #: [place] [address] Cardiovascular Laboratory Report FINAL IMPRESSIONS: 1. Severe [...] physician as scheduled. 6. Follow up with [facility] Cardiology as scheduled. PROCEDURES: Bilateral selective coronary [...] the left radial artery was obtained. A 6-Divehi glide sheath was inserted without difficulty. Bilateral [...] gives rise to prominent septal perforators supplying osoi-wh-mmtbj collaterals. Distal filling is seen via a patent left internal mammary artery graft to the left anterior descending. The diagonal branch showed diffuse disease. Ramus intermedius: This is a small to moderate size vessel with a 70% ostial stenosis. Left circumflex coronary artery: This shows ectasia and significant tortuosity in the proximal portion followed by a 60% stenosis. There is evidence of gois-fr-fuqtb collaterals. Right coronary artery: This is a [...] A/Ale Santos M.D. Date Trans: 05/20/2021 11:54 A/misael [id number] cc: KENYA [address] [place] [address] Normal [facility] APTTon 09-27-2018 aPTT Coag time (Bld) 36 s Normal 28 - 38 [facility] Comment on above: Result Comment: THE APTT IS NO LONGER USED FOR MONITORING UNFRACTIONATED HEPARIN THERAPY. FOR MONITORING HEPARIN THERAPY, USE THE HEPARIN ASSAY. Performed By: #### A PTT #### [address] [address] CBC AND DIFFERENTIALon 09-27 % AUTOMATED IMMATURE GRAN 0.1 % Normal 0.0 - 0.9 [facility] Comment on above: Result Comment: Perc ent differential counts (%) should be interpreted in the context of the absolute cell counts (cells/L). Performed By: #### C BCDF #### [address] [address] % NEUTROPHIL 67.7 % Normal 40.0 - 80.0 [facility] Comment on above: Performed By: #### C BCDF #### [address] [address] Basophils/100 WBC (Bld) 0.1 % Normal 0.0 - 2.0 [facility] Comment on above: Performed By: #### C BCDF #### [address] [place] [address] Basophils/100 WBC (Bld) 0.01 x10E9/L Normal 0.00 - 0.10 [facility] Comment on above: Performed By: #### C BCDF #### [address] [address] Eosinophils #/vol (Bld) 0.25 10*3/uL Normal 0.00 - 0.40 [facility] Comment on above: Performed By: #### C BCDF #### [address] [address] Eosinophils/100 WBC (Bld) 3.4 % Normal 0.0 - 6.0 [facility] Comment on above: Performed By: #### C BCDF #### [address] [address] Erythrocyte distribution width Ratio (RBC) 12.7 % Normal 11.5 - 14.5 [facility] Comment on above: Performed By: #### C BCDF #### [address] [address] Hematocrit Volume Fraction (Bld) 43.2 % Normal 41.0 - 52.0 [facility] Comment on above: Performed By: #### C BCDF #### [address] [address] Hemoglobin mass conc (Bld) 14.3 g/dL Normal 13.5 - 17.5 [facility] Comment on above: Performed By: #### C BCDF #### [address] [address] Lymphocytes #/vol (Bld) 1.29 10*3/uL Normal 0.80 - 3.00 [facility] Comment on above: Performed By: #### C BCDF #### [address] [address] Lymphocytes/100 WBC (Bld) 17.5 % Normal 13.0 - 44.0 [facility] Comment on above: Performed By: #### C BCDF #### [address] [place] [address] MCHC mass conc (RBC) 33.1 g/dL Normal 32.0 - 36.0 [facility] Comment on above: Performed By: #### C BCDF #### [address] [address] MCV Entitic volume (RBC) 93 fL Normal 80 - 100 [facility] Comment on above: Performed By: #### C BCDF #### [address] [address] Monocytes #/vol (Bld) 0.83 10*3/uL High 0.05 - 0.80 [facility] Comment on above: Performed By: #### C BCDF #### [address] [address] Monocytes/100 WBC (Bld) 11.2 % Normal 2.0 - 10.0 [facility] Comment on above: Performed By: #### C BCDF #### [address] [address] Neutrophils #/vol (Bld) 5.00 10*3/uL Normal 1.60 - 5.50 [facility] Comment on above: Performed By: #### C BCDF #### [address] [address] Platelets #/vol (Bld) 193 10*3/uL Normal 150 - 450 [facility] Comment on above: Performed By: #### C BCDF #### [address] [address] RBC #/vol (Bld) 4.64 x10E12/L Normal 4.50 - 5.90 [facility] Comment on above: Performed By: #### C BCDF #### [address] [address] WBC #/vol (Bld) 7.4 10*3/uL Normal 4.4 - 11.3 [facility] Comment on above: Performed By: #### C BCDF #### [address] [address] COMPREHENSIVE PANELon 2018 Albumin mass conc 3.8 g/dL Normal 3.4 - 5.0 [facility] Comment on above: Performed By: #### C MP #### [address] [address] ALP enzyme act/vol 97 U/L Normal 33 - 136 [facility] Comment on above: Performed By: #### C MP #### [address] [address] ALT enzyme act/vol 19 U/L Normal 10 - 52 [facility] Comment on above: Result Comment: Princess ents treated with Sulfasalazine may generate falsely decreased results for ALT. Performed By: #### C MP #### [address] [address] Anion gap molar conc 10 mmol/L Normal 10 - 20 [facility] Comment on above: Performed By: #### C MP #### [address] [address] AST enzyme act/vol 17 U/L Normal 9 - 39 [facility] Comment on above: Performed By: #### C MP #### [address] [address] Bilirubin mass conc 0.7 mg/dL Normal 0.0 - 1.2 [facility] Comment on above: Performed By: #### C MP #### [address] [address] Calcium mass conc 9.1 mg/dL Normal 8.6 - 10.3 [facility] Comment on above: Performed By: #### C MP #### [address] [address] Chloride molar conc 106 mmol/L Normal 98 - 107 [facility] Comment on above: Performed By: #### C MP #### [address] [address] Creatinine mass conc 0.96 mg/dL Normal 0.50 - 1.30 [facility] Comment on above: Performed By: #### C MP #### [address] [address] GFR- AM. >60 Normal >60 [facility] Comment on above: Result Comment: CALC ULATIONS OF ESTIMATED GFR ARE PERFORMED USING THE MDRD STUDY EQUATION FOR THE IDMS-TRACEABLE CREATININE METHODS. CLIN CHEM 2007;53:766-72 Performed By: #### C MP #### [address] [address] GFR-NON AM. >60 Normal >60 [facility] Comment on above: Performed By: #### C MP #### [address] [address] Glucose mass conc 171 mg/dL High 74 - 99 [facility] Comment on above: Performed By: #### C MP #### [address] [address] HCO3 molar conc (Bld) 28 mmol/L Normal 21 - 32 [facility] Comment on above: Performed By: #### C MP #### [address] [address] Potassium molar conc 3.8 mmol/L Normal 3.5 - 5.3 [facility] Comment on above: Performed By: #### C MP #### [address] [address] Protein mass conc 6.4 g/dL Normal 6.4 - 8.2 [facility] Comment on above: Performed By: #### C MP #### [address] [address] Sodium molar conc 140 mmol/L Normal 136 - 145 [facility] Comment on above: Performed By: #### C MP #### [address] [address] Urea nitrogen mass conc 13 mg/dL Normal 6 - 23 [facility] Comment on above: Performed By: #### C MP #### [address] [address] PT/INRon 09-27-2018 INR Coag RelTime (PPP) 1.0 {INR} Normal 0.9 - 1.1 [facility] Comment on above: Performed By: #### P TINR #### [facility] [address] [place] [address] Prothrombin time (PT) Coag time (PPP) 11.8 s Normal 9.7 - 12.7 [facility] Comment on above: Performed By: #### P TINR #### [facility] [address] [place] [address] Urine Cultureon 05-08-2018 Bacteria identified Cx Nom (U) [facility] OR[facility]: Escherichia coli (O:ESCCOL) [place] Count >100,000 Aerobic KAMALJIT Charge (Neg) --- [...] RESISTANT TO ALL B-LACTAM DRUGS. PERFORMED BY: [address] [place] [address] PATHOLOGIST PNEUMATIC TOOL OPERATOR CHRIST CANDELARIA M.D. Normal [facility] Comment on above: Performed By: #### C UU #### [facility] [address] Vital Signs Date Time Vital Sign Value Performing Clinician Angelita wren 10-10-2023 17:40-0400 Body height 170.18 cm [facility] 10-10-2023 17:40-0400 Body mass index (BMI) [Ratio] 30.4 kg/m2 [facility] 10-10-2023 17:40-0400 Body temperature 98.7 [degF] [facility] 10-10-2023 17:40-0400 Body weight 88.05 kg [facility] 10-10-2023 17:40-0400 Heart rate 60 /min [facility] 10-10-2023 17:40-0400 Respiratory rate 18 /min [facility] 10-10-2023 17:40-0400 SaO2% (BldA) [Mass fraction] 97 % [facility] Encounters Encounter Date Encounter Type Care Provider Facility Start: 10-30-2024 ambulatory [facility] Start: 10-30-2024 Encounter for preprocedural cardiovascular examination [facility] Start: 10-21-2024 End: 10-21-2024 ambulatory KIN DEL RIO [facility] Start: 08-20-2024 ambulatory [facility] Start: 06-04-2024 End: 06-04-2024 ambulatory [facility] Start: 02-01-2024 ambulatory DEMETRIO COSTELLO [facility] Start: 01-18-2024 ambulatory [facility] Start: 11-22-2023 End: 11-22-2023 ambulatory YOEL NEAL [facility] Start: 11-21-2023 End: 11-21-2023 ambulatory [facility] Start: 10-10-2023 End: 10-10-2023 ambulatory [facility] Work Phone: Start: 10-10-2023 End: 10-10-2023 Patient encounter procedure [facility] Work Phone: Start: 07-05-2022 End: 07-05-[address] TEVIN TA Facility:[facility] Start: 06-30-2022 End: 06-30-2022 ambulatory GRAEMEPIA BECKHAM Facility:[facility] Start: 05-27-2022 End: 05-27-[address] CHINEDU AGUILAR . Facility:[facility] Start: 02-03-[address] ALE Hirsch ty:[facility] Start: 10-12-[address] ALE Hirsch ty:[facility] Start: 09-23-2021 End: [address] ALE SANTOS Facility:[facility] Start: 05-20-2021 End: 05-21-2021 ambulatory ALE SANTOS Facility:[facility] Start: 05-08-2018 End: 05-08-2018 Patient encounter procedure Denisse Diaz Facility:[facility] Patient encounter status Florentino Panda MD [facility] Work Phone: Procedures Date Procedure Procedure Detail Performing Clinician Start: 09-27-2018 Follow-up visit Bypass graft Florentino Panda MD Cataract surgery Florentino oliveira MD Mohs surgery Florentino Panda MD Tooth extraction Florentino oliveira MD Payers Date Payer Category Payer Medicare [id number] 2009 Unknown [id number] 2009 Unknown [id number] 1959 Self-pay 1959 Unknown [id number] 1938 Unknown [id number] 2.16.8 [id number] 1938 Unknown [id number] 2.16.84 [id number] 1938 Unknown [id number] 2.16.84 [id number] 1938 Unknown [id number] 2.16.84 [id number] 1938 Unknown [id number] 2.16.84 [id number] 1938 Unknown [id number] 2.16.84 [id number] 1938 Unknown [id number] 2.16.84 [id number] Unknown [id number] Social History Date Type Detail Facility Start: 02-02-2021 Tobacco smoking status NHIS Ex-smoker (finding) [facility] Start: 1940 Sex Assigned At Male F [facility] NEGATED: Highlighted row - - [facility] Work Phone: Functional Status Date Assessment Result Facility NEGATED: Highlighted row Functional performance Functional status health issues are not documented Disease [facility] Work Phone: Mental Status Date Assessment Result Facility NEGATED: Highlighted row Cognitive function [Interpretation] Cognitive status health issues are not documented Disease [facility] Work Phone: Progress note 10-21-2024 Note Date & Type Note Facility 10-21-2024 Note SUBJECTIVE Reason for Visit: Lewis Wahl is a 84 y.o. year old male patient being seen for 1 year follow-up visit. HPI: Lewis Wahl is a 84 y.o. year old male with significant medical history of HFrEF, CAD s/p CABG 1998, ICM/NICM, HLD, HTN, persistent a.fib s/p cardioversion, DM2. 10/21/2024 office visit: Patient was seen and evaluated in the office for a 1-year follow-up visit, accompanied by his significant other. He reports feeling well overall and has no current complaints. He denies chest pain, shortness of breath, palpitations, lightheadedness or dizziness, and lower extremity edema. Blood pressure was elevated during today???s visit. He is unsure of his current medication regimen, as [facility] and they are not reflected in the dispense report. He was instructed to check his blood pressure both before and approximately 1-2 hours after taking his medications, and to call the office with the readings. He was also advised to provide a full list of the medications he is currently taking. 11/22/2023 office visit (Yoel Neal): Since I had last seen him, he underwent a cardioversion. He denies any sx's since then. Denies c/o CP, dyspnea, orthopnea, PND, LE edema, dizziness/LH, palpitations, syncope. He c/o easy bruising/bleeding. He had a fall about a month ago. Medical History[1] Surgical History[2] Problem List[3] family history includes Coronary artery disease in his father. Social History[4] OBJECTIVE Visit Vitals Smoking Status Former Physical Exam Constitutional: General Appearance: well-developed, appears stated age. Level of Distress: no acute distress. Neck: Jugular Veins: normal jugular venous pressure. Lungs: Auscultation: no rales or rhonchi and normal breath sounds. Cardiovascular: Rate And Rhythm: regular Heart Sounds: normal S1 and s2; Systolic Murmur: not heard. Diastolic Murmur: not heard. Extremities: Trace lower extreme edema. Peripheral Pulses: Pulses: full and equal in all extremities except if noted. Abdomen: Inspection and Palpation: non distended or tender and soft. Musculoskeletal: Inspection: no joint tenderness or swelling. Neurologic: Gait: normal gait. Psychiatric: Mental Status: alert and normal affect. Skin: Inspection and Palpation: warm and dry. Allergies: Allergies[5] Outpatient Medications: Current Outpatient Medications Medication Instructions amiodarone (PACERONE) 200 mg, oral, Daily apixaban (ELIQUIS) 5 mg, oral, Every 12 hours carvedilol (COREG) 25 mg, oral, Every 12 hours cholecalciferol (VITAMIN D-3) 25 mcg, oral, Daily clopidogrel (PLAVIX) 75 mg, oral, Daily, Takes at 12Noon empagliflozin (JARDIANCE) 12.5 mg, oral, Daily isosorbide mononitrate ER (IMDUR) 60 mg, oral, Daily, Takes at 12noon lisinopril 40 mg, oral, Daily, Takes at 12noon metFORMIN (GLUCOPHAGE) 1,000 mg, oral, Every 12 hours nitroglycerin (NITROSTAT) 0.4 mg, sublingual, Every 5 min PRN rosuvastatin (CRESTOR) 40 mg, oral, Daily spironolactone (Aldactone) 25 mg tablet TAKE 1/2 TABLET BY MOUTH IN THE MORNING Recent Labs: No visits with results within 6 Month(s) from this visit. Latest known visit with results is: Admission on 05/04/2023, Discharged on 05/04/2023 Component Date Value Ventricular Rate 05/04/2023 70 QRS DURATION 05/04/2023 114 QT Interval 05/04/2023 410 QTC CALCULATION(BAZETT) 05/04/2023 442 R-[place] 05/04/2023 51 T Wave [place] 05/04/2023 87 Ventricular Rate 05/04/2023 60 Atrial Rate 05/04/2023 60 SC Interval 05/04/2023 266 QRS DURATION 05/04/2023 114 QT Interval 05/04/2023 446 QTC CALCULATION(BAZETT) 05/04/2023 446 P [place] 05/04/2023 -18 R-[place] 05/04/2023 43 T Wave [place] 05/04/2023 71 Labs 05/29/2024: Sodium 139, potassium 4.6, creatinine 1.7, EGFR 39, BUN 22 I have personally reviewed and anaylzed the following laboratory results above. These findings have been analyzed in the context of the patient's clinical presentation. Cardiovascular Diagnostic Studies: 11/21/2023 Normal functioning device, lead measurements stable, no events DUAL CHAMBER ICD IMPLANT PROCEDURE NOTE 03/13/2023 DATE OF PROCEDURE: 03/13/2023 PERFORMING PHYSICIAN: Dr. Tyrese Burden CONSENT: Patient LOCATION: EP Lab PROCEDURE PERFORMED: 1. Implantation of dual chmaber ICD ([employer]) 2. Ultrasound guided venous access INDICATIONS: 1. Dilated ischemic cardiomyopathy 2. NYHA class III 3. Atrial fibrillation IMPRESSION: 1. Successful dual chamber ICD with [...] 7. DCCV after 4 weeks of AC. (more content not included)... [facility] Progress note 11-22-2023 Note Date & Type Note Facility 11-22-2023 Note Pt is here for a six month follow up. Review of Systems All other systems reviewed and are negative. [facility] Progress note 11-22-2023 Note Date & Type Note Facility 11-22-2023 Note Cardiovascular Medic [facility] SUBJECTIVE Chief Complaint Patient presents with Atrial Fibrillation Congestive Heart Failure Coronary Artery Disease Lewis Wahl is a 83 y.o. male here for follow-up. HPI PMHx: HFrEF, CAD s/p CABG 1998, ICM/NICM, HLD, HTN, persistent a.fib s/p cardioversion, DM2 Since I had last seen him, he underwent a cardioversion. He denies any sx's since then. Denies c/o CP, dyspnea, orthopnea, PND, LE edema, dizziness/LH, palpitations, syncope. He c/o easy bruising/bleeding. He had a fall about a month ago. Patient Active Problem List Diagnosis Acute systolic heart failure (CMS/HCC) Coronary atherosclerosis Hyperlipidemia Hypertensive disorder Paroxysmal atrial fibrillation ([facility]/HCC) Chronic systolic heart failure ([facility]/HCC) Longstanding persistent atrial fibrillation ([facility]/HCC) Past Medical History: Diagnosis Date Atrial fibrillation ([facility]/HCC) CHF (congestive heart failure) ([facility]/HCC) Coronary artery disease Diabetes mellitus ([facility] Hyperlipidemia Hypertension Family History Problem Relation Name Age of Onset Coronary artery disease Father Social History Tobacco Use Smoking status: Former Types: Cigarettes Smokeless tobacco: Never Substance Use Topics Alcohol use: Yes Comment: moderate Allergies Allergen Reactions Atorvastatin Review of Systems Constitutional: Negative for chills, decreased appetite, fever, malaise/fatigue and weight gain. Cardiovascular: Negative for chest pain, dyspnea on exertion, irregular heartbeat, leg swelling, near-syncope, orthopnea, palpitations, paroxysmal nocturnal dyspnea and syncope. Hematologic/Lymphatic: Negative for bleeding problem. Bruises/bleeds easily. Musculoskeletal: Positive for falls. OBJECTIVE Visit Vitals BP 112/62 Pulse 68 Ht 1.702 m (5' 7 ) Wt 86.6 kg (191 lb) SpO2 (!) 86% BMI 29.91 kg/m??? Smoking Status Former BSA 2.02 m??? Medications: Current Outpatient Medications: amiodarone (Pacerone) 200 mg tablet, Take 1 tablet (200 mg) by mouth in the morning., Disp: 90 tablet, Rfl: 3 apixaban (Eliquis) 5 mg tablet, Take 5 [...] by mouth in the morning. Takes at 12Noon, Disp: , Rfl: empagliflozin (Jardiance) 25 mg, Take 12.5 mg by mouth in the morning., Disp: , Rfl: isosorbide mononitrate ER (Imdur) 60 mg 24 hr tablet, Take 60 mg by mouth in the morning. Takes at 12noon, Disp: , Rfl: lisinopril 40 mg tablet, Take 40 mg by mouth in the morning. Takes at 12noon, Disp: , Rfl: metFORMIN (Glucophage) 1,000 mg [...] , Rfl: spironolactone (Aldactone) 25 mg tablet, TAKE 1/2 TABLET BY MOUTH IN THE MORNING, Disp: 45 tablet, Rfl: 3 Physical Exam [...] Normal pulses. Heart sounds: Normal heart sounds. Pulmonary: Effort: Pulmonary effort is normal. Breath [...] normal. Judgment: Judgment normal. Labs: Admission on 05/04/2023, Discharged on 05/04/2023 Component Date Value Ref Range Status Ventricular Rate 05/04/2023 70 BPM Final QRS DURATION 05/04/2023 114 ms Final QT Interval 05/04/2023 410 ms Final QTC CALCULATION(BAZETT) 05/04/2023 442 ms Final R-[place] 05/04/2023 51 degrees Final T Wave [place] 05/04/2023 87 degrees Final Ventricular Rate 05/04/2023 60 BPM Final Atrial Rate 05/04/2023 60 BPM Final SC Interval 05/04/2023 266 ms Final QRS DURATION 05/04/2023 114 ms Final QT Interval 05/04/2023 446 ms Final QTC CALCULATION(BAZETT) 05/04/2023 446 ms Fin (more content not included)... [facility] Evaluation note Note Date & Type Note Facility Evaluation note [facility]: Instructions Note Date & Type Note Facility Instructions Name Instructions not documented [facility] Work Phone: Summary Purpose Family History No Family History Records Found Mother Name Dates Details No pertinent family history( V49.89, Z78.9) Status:Active Father Name Dates Details Family history of cardiac di sorder(V17.49, Z82.49) Status:Active Relationship Condition Age at Onset Recorded Date/T quinten father Unknown Heart disease Unknown mother Unknown Advance Directives No Advanced Directives Records Found Advance Directive Response Recorded Date/ Time Advance Directives No May 10, 2018 12:04pm Chief Complaint and Reason for Visit Chief Complaint Left hand laceration Additional Source Comments (unrecognized sect ion and content) No Status Records FoundNo Status Records FoundNo Status Records FoundNo Status Records FoundNo Status Records FoundNo Status Records Found INFORMATION SOURCE (unrecogn ized section and content) DATE CREATED AUTHOR 05/28/2018 [facility] DATE CREATED AUTHOR AUTHOR'S ORGANIZ ATION 09/28/2018 [employer] DATE CREATED AUTHOR AUTHOR'S ORGANIZ ATION 09/28/2018 [facility] DATE CREATED AUTHOR AUTHOR'S ORGANIZ ATION 06/11/2021 [facility] DATE CREATED AUTHOR AUTHOR'S ORGANIZ ATION 08/09/2022 [facility] DATE CREATED AUTHOR AUTHOR'S ORGANIZ ATION 11/02/2024 [facility] Care Teams (unrecognized sec tion and content) Team Status: Active Member Role Status Dates Lydia Milner (Clinic) , DO [facility] Primary Care Prov ider Active Team Status: Inactive Member Role Status Dates Lydia Milner (Clinic) , DO [facility] Primary Care Provider Active Start: October 09 End: October 10, 2023 Maria G Pelletier APRN Attending Provider Active Start: October 10, 2023 End: October 10, 2023 Goals (unrecognized section and content) Goals may be documented in a n alternate section FOR RECORDS PERTAINING TO PATIENTS WHO ARE [...] BE BASED ON THE PRIMARY CLINICAL RECORDS. [facility] [employer] [facility]. provides no warranty or guarantee of the accuracy or completeness of information in this document.
== END 2024-12-11 14:13 | disposition home or self-care (01) ==
PROVIDERS: Emergency Provider Student in an Organized Health Care Education/Training Program; PCP Family Medicine
DX: N17.9 Acute kidney failure, unspecified (principal); R53.1 Weakness; Z95.1 Presence of aortocoronary bypass graft; Z79.01 Long term (current) use of anticoagulants
CPT/HCPCS: 36415; 71046; 80053; 81001; 83735; 83880; 84484; 85025; 93005; 99285